=== PATIENT | female | born 1965 | race Caucasian/White ===

== ENCOUNTER 2019-07-07 04:52 | Day surgery (SDC) | payer OTHER, MEDICAID, SELFPAY ==
[2019-07-07] VITALS (8 sets, daily range): BP systolic 82–178; BP diastolic 54–98; PULSE 92–108; RESP 15–20; TEMP 36.4–37; O2SAT 94–100; BMI 36.8
[2019-07-07] MEDS: nitroglycerin 0.4 mg sublingual Tablet SUBLINGUAL (05:00)
--- NOTE | 2019-07-07 05:04 | XRR_ITS ---
PROCEDURE INFORMATION: Exam: XR Soft Tissue Neck Exam date and time: 07/07/2019 5:41 AM Age: 54 years old Clinical indication: Other: Choked on piece of meat last saige; Prior surgery; Surgery type: Carotid; Additional info: Foreign body TECHNIQUE: Imaging protocol: XR of the soft tissues of the neck. COMPARISON: CR Cervical Spine Flex/Ext [id number] 02/23/2018 9:53 AM FINDINGS: Airway: Normal. No abnormal narrowing. Soft tissues: Left neck surgical clips redemonstrated. No radiopaque or radiolucent foreign body identified. Bones/joints: Multilevel right cervical spine facet primary osteoarthritis with mild levoscoliosis. XR/XR soft tissue neck [id number] IMPRESSION: No radiopaque or radiolucent foreign body identified.
--- NOTE | 2019-07-07 05:10 | W.ED.GENADLT ---
HPI - General Adult General: Chief complaint: General Medical Stated complaint: meat lodged in throat Time Seen by Provider: 07/07/19 04:55 Source: patient Mode of arrival: ambulatory Limitations: no limitations History of Present Illness: HPI narrative: Kim is a 54-year-old female who states she was eating meat last night and felt like she got a piece of meat stuck in her throat. She states that since then she has not been able to swallow any liquids and they just come right back up. She states he also has a foreign body sensation in her esophagus. She denies any worsening improving factors. She states this is happened in the past but never had to have an EGD. She denies any vomiting. MD complaint: esophageal foreign body Onset (ago): hour(s) Severity: moderate Relieving factors: none Exacerbating factors: none Associated symptoms: Deny chest pain, dyspnea, headache(s), nausea, rash or vomiting Review of Systems Const: Denies: fever, chills, body aches or change in appetite Eyes: Denies: blurry vision or eye discomfort ENMT: Denies: throat pain or dental pain Card: Denies: chest pain Resp: Denies: shortness of breath GI: Reports: difficulty swallowing; Denies: abdominal pain, nausea, vomiting or diarrhea : Denies: painful urination Musc: Denies: neck pain or back pain Skin/Breast: Denies: rash Neuro: Denies: headache Psych: Denies: depression Dick/Lymph: Denies: easy bruising All/Imm: Denies: hives PFSH ED PFSH: Social History Smoking and tobacco status: never smoked Physical Exam Const: COMMON NORMALS: no apparent distress, oriented x3 and healthy appearing HENMT: COMMON NORMALS: normocephalic and head/scalp atraumatic HEAD & SCALP: normocephalic and atraumatic Eye: COMMON NORMALS: PERRL and EOMs intact bilaterally PUPIL: Yes PERRL Neck/C-Spine: COMMON NORMALS: full ROM and supple Chest: COMMONS NORMALS: inspection of chest normal and palpation of chest normal Resp: COMMON NORMALS: normal respiratory effort, no retractions, no use of accessory muscles and clear to auscultation bilaterally AUSCULTATION: clear to auscultation bilaterally Cardio: COMMON NORMALS: regular rate, regular rhythm and no murmurs RATE: regular rate RHYTHM: regular rhythm GI: COMMON NORMALS: normal to inspection, nondistended, normoactive bowel sounds, soft to palpation, non-tender and no masses PALPATION: Yes soft Extremity: COMMON NORMALS: normal to inspection and full ROM Neuro: COMMON NORMALS: oriented x3, moves all extremities and no focal motor deficits Psych: COMMON NORMALS: mental status grossly normal, thought process normal and cooperative THOUGHT PROCESS: normal thought process Skin: COMMON NORMALS: no rashes or lesions noted and no wounds GENERAL SKIN EXAM: no rashes or lesions noted Course Vital Signs: Vital signs: Vital Signs Temperature 98.6 F 07/07/19 05:00 Pulse Rate 107 H 07/07/19 05:00 Respiratory Rate 18 07/07/19 05:00 Blood Pressure 178/98 07/07/19 05:00 Pulse Oximetry 97 07/07/19 05:00 MDM - General Adult MDM Narrative: Medical decision making narrative: Patient presents here with an esophageal food impaction. Patient is unable to swallow any liquids here. I spoke to Dr. Fabian he is planning on taking her to the OR at 630. Patient has been stable while here. Discharge Plan Discharge Patient Disposition: Admitted As Inpatient Clinical Impression: Food impaction of esophagus Qualifiers: Encounter type: initial encounter Qualified Code(s): T18.128A - Food in esophagus causing other injury, initial encounter Condition: Stable Referrals: Alexey Bass MD [Family Provider] - Coding Level of Care Code ED Sanding Machine Tender for Chg Fwd Exam Comprehensive
--- NOTE | 2019-07-07 05:51 | XRR_ITS ---
PROCEDURE INFORMATION: Exam: XR Chest, 1 View Exam date and time: 07/07/2019 5:59 AM Age: 54 years old Clinical indication: Pre-operative exam; Respiratory screening exam; Prior surgery; Surgery type: Carotid; Patient HX: Pre-op for scope; Meat stuck in throat; Additional info: Chest pain TECHNIQUE: Imaging protocol: XR of the chest Views: Frontal portable upright view of the chest. COMPARISON: No relevant prior studies available. FINDINGS: Lungs: The lungs are clear bilaterally. The pulmonary vasculature is normal. Pleural space: No pleural effusion. No pneumothorax. Heart/Mediastinum: The heart is normal in size and contour. Mediastinum: Stable. Vasculature: Mild aortic arch atherosclerotic calcification without ectasia. Bones/joints: Stable. Other findings: No radiopaque or radiolucent foreign body identified. XR/XR chest 1V portable [id number] IMPRESSION: 1. No acute cardiopulmonary abnormality identified. 2. No radiopaque or radiolucent foreign body identified.
--- NOTE | 2019-07-07 05:53 | P.HP_ITS ---
Same Day Surgery H&P Indication for Procedure/HPI DATE OF PROCEDURE: July 07, 2019 CHIEF COMPLAINT/INDICATIONFOR SURGICAL PROCEDURE: Food impaction PREOP DIAGNOSIS: Food impaction PLANNED PROCEDRUE: Operation Date: 07/07/19 06:30 Proposed Procedures p EGD(Not Applicable) - Igor Fabian MD This is a pleasant 54 years old female patient resents to the emergency department with history of food impaction as of yesterday evening she had some steak and she started struggling with that, given to the ER for further evaluati on neck x-ray was obtained and I did request a chest x-ray both of them were insignificant. General surgery was consulted for further evaluation and potential intervention in the form of EGD and food disimpaction. Patient gives history of extensive neck surgery that she had in the past but she does not recall what kind of surgery yet she does have an neck collar incision which indicates likely thyroid surgery also she does report previous craniotomy and brain tumor excisions and history of palate surgery. She had this problem before 7 years and she does not remember if she had an endoscopy or what not No evidence of anesthesia or bleeding problems before Patient was seen and evaluated in the emergency department ROS All systems have been reviewed negative except as for the above Medications/Allergies* Allergies/Adverse Reactions Allergy/AdvReac Type Severity Reaction Status Date / Time No Known Allergies Allergy Verified 07/07/19 06:02 Pertinent History/Comorbid Conditions* Social History Smoking and tobacco status: never smoked Pertinent Exam Findings alert, oriented x 3, clear to auscultation bilaterally and regular rate & rhythm Patient is conscious alert oriented X3 BMI 37 Head and neck examination PERRLA no masses no cervical lymphadenopathy no jaundice Extensive scar tissues located at the anterior part of the neck/Collar incision Cardiac examination audible S1-S2 no murmurs no gallops no arrhythmias Chest is clear bilateral,abscence of Rhonchi or wheezes,no surgical emphysema Abdomen nontender nondistended soft no organomegaly guarding or rigidity/no signs of peritonitis Extremities no cyanosis no clubbing no edema Pertinent Data PERTINENT DATA: After thorough history physical examination and reviewing the chart and images with my personal interpretation, I counseled the patient for diagnostic EGD with possible food disimpaction in the OR with intubation to protect her airway. Patient would likely will require extensive work-up with regard to dysphagia down the road Recommendations Surgery/Procedure today (Esophagogastroduodenoscopy with possible food disimpaction) Coding Level of Care Code Acute Youth Accommodation Support Worker for Yesenia Connors
[2019-07-07 06:00] LABS: Basophils % 0.3 %; Eosinophils # 0.7 10^3/uL (0.0-0.8); Eosinophils % 6.6 %; Hematocrit 42.5 % (37.0-47.0); Hemoglobin 13.1 g/dL (11.5-15.3); Lymphocytes # 1.4 10^3/uL (0.8-4.8); Lymphocytes % 13.4 %; Mean Corpuscular HGB Conc 30.8 g/dL (30.0-36.0); Mean Corpuscular Hemoglobin 26.4 pg (28.0-34.0); Mean Corpuscular Volume 85.5 fL (81-99); Mean Platelet Volume 10.5 fL (7.4-10.4); Monocytes # 0.5 10^3/uL (0.2-0.9); Monocytes % 4.6 %; Neutrophils # 7.7 10^3/uL (1.8-7.7); Neutrophils % 74.3 %; Nucleated Red Blood Cells % 0 %; Platelet Count 298 10^3/cmm (130-400); Red Blood Count 4.97 10^6/uL (4.1-5.3); Red Cell Distribution Width 13.4 % (12.1-15.1); White Blood Count 10.3 10^3/uL (4.0-10.0)
[2019-07-07 06:12] LABS: Anion Gap 14.7 (5-19); Blood Urea Nitrogen 16 mg/dL (6-20); Calcium 10.1 mg/dL (8.5-10.5); Carbon Dioxide 26 mmol/L (22-29); Chloride 104 mmol/L (98-107); Glomerular Filtration Rate 104.6 mL/min (90-130); Glucose 210 mg/dL (65-115); Osmolality Calculated 295 mOsm/kg (285-295); Potassium 3.7 mmol/L (3.5-5.1); Sodium 141 mmol/L (136-145)
--- NOTE | 2019-07-07 06:15 | P.ANESASSM_ITS ---
Pre-Anesthetic Assessment Pre-Anesthetic Assessment: Height/Weight: Height 1.55 m Weight 88.451 kg Temp Pulse Resp BP Pulse Ox 98.6 F 108 H 18 165/97 96 07/07/19 05:00 07/07/19 05:59 07/07/19 05:59 07/07/19 05:59 07/07/19 05:59 Preop Diagnosis: Food impaction Proposed Procedure: Operation Date: 07/07/19 06:30 Proposed Procedures p EGD(Not Applicable) - Igor Fabian MD Familial anesthetic complications: NO trouble Patient unable to state what medications she takes Last intake: Intake Last Liquid Date 07/06/19 Last Liquid Time 18:00 Last Solid Date 07/06/19 Last Solid Time 18:00 Social: Social History: No alcohol and No tobacco Airway: Cervical ROM: WNL MP: 3 Dentition: Chipped Additional comments: missing Pulmonary: Pulmonary: None reported CV/HEM: Comments: Baby asprin to keep my blood thinned out for my throat : : None reported Hepatic: Hepatic: None reported GI: GI: GERD Comments: food impaction Metabolic: Metabolic: Thyroid Comments: thryoidectomy Musc/skel: Musc/skel: None reported Neuropsych: Comments: ? carotid artery stenosis (b/L) - states she had surgery on both sides of her throat Anesthetic Plan: ASA status: 2E Anesthesia: General Other: RSI Risk of > 500 ml blood loss (7ml/kg in children): No PFSH Anesthesia PFSH: Social History Smoking and tobacco status: never smoked Data Anesthesia CBC & Chem 7: 07/07/19 05:55 07/07/19 05:55 Other Labs: Laboratory Results - last 48 hr 07/07/19 07/07/19 05:55 05:55 WBC 10.3 H RBC 4.97 Hgb 13.1 Hct 42.5 MCV 85.5 MCH 26.4 L MCHC 30.8 RDW 13.4 Plt Count 298 MPV 10.5 H Neut % (Auto) 74.3 Lymph % (Auto) 13.4 [place] % (Auto) 4.6 Eos % (Auto) 6.6 Baso % (Auto) 0.3 Neut # (Auto) 7.7 Lymph # (Auto) 1.4 [place] # (Auto) 0.5 Eos # (Auto) 0.7 Baso # (Auto) 0.0 Nucleated RBC % (auto) 0 Nucleated RBCs # 0.0 Sodium 141 Potassium 3.7 Chloride 104 Carbon Dioxide 26 Anion Gap 14.7 BUN 16 Creatinine 0.6 GFR Calculation 104.6 Glucose 210 H Calculated Osmolality 295 Calcium 10.1 Cardiac Studies: No Data to Display
[2019-07-07] MEDS: sodium chloride 0.9% 1,000 ML 30 ML IV (06:30)
--- NOTE | 2019-07-07 07:30 | PM.PACU ---
PACU note Post-Anesthesia Exam: somnolent, arousable and vital signs stable Disposition: discharged
== END 2019-07-07 08:35 | disposition home or self-care (01) ==
LOC: ER 07:53 → OPS 08:10
PROVIDERS: Emergency Provider Emergency Medicine; Family Provider Family Medicine; Visit Provider Surgery
PROC: 0DJ08ZZ Inspection of Upper Intestinal Tract, Via Natural or Artificial Opening Endoscopic (ICD-10-PCS; CPT 43235; principal; 2019-07-07 06:30)
DX: T18.128A Food in esophagus causing other injury, initial encounter (principal); K29.70 Gastritis, unspecified, without bleeding; K21.9 Gastro-esophageal reflux disease without esophagitis; Z79.82 Long term (current) use of aspirin
CPT/HCPCS: 43247; 12345; 70360; 71045; 80048; 85025; 96372; 99283; J0330; J1610; J2704; J3490; J7030

== ENCOUNTER 2019-08-05 08:33 | Day surgery (SDC) | payer OTHER, MEDICAID, SELFPAY ==
[2019-08-05] VITALS (9 sets, daily range): BP systolic 102–175; BP diastolic 60–93; PULSE 88–107; RESP 16–22; TEMP 36.2–37.2; O2SAT 93–97; BMI 35.3; BMI 37.2
--- NOTE | 2019-08-05 09:02 | PC.NURSE ---
oral fluid challenge done. Pt gagged and unable to swallow water. ED physician notified.
--- NOTE | 2019-08-05 09:04 | ED_ITS ---
HPI - General Adult General: Chief complaint: Airway/Esophagus Foreign Body Stated complaint: FB IN THROAT Time Seen by Provider: 08/05/19 08:37 History of Present Illness: HPI narrative: 54-year-old female presents emergency room with complaint of difficulty swallowing. She has had this in the past she reports she has had a surgery for a blockage in her neck but cannot really tell me anything more specific than that it was done over at [facility] several years ago. This began last night has not been able to eat since he seems to be able to swallow oral secretions but we gave her a fluid challenge here in the ER and she was not able to tolerate that at all. She denies any difficulty breathing. Onset (ago): day(s) (1) Pain Consistency: intermittent Relieving factors: none Exacerbating factors: eating Associated symptoms: Reports no associated symptoms; Deny chest pain, dyspnea, malaise, nausea, rash or vomiting Treatments prior to arrival: none Review of Systems Const: Denies: fever, chills, body aches, change in appetite, fatigue or malaise ENMT: Reports: throat pain and painful swallowing; Denies: ear pain, nasal discharge or nasal congestion Card: Denies: chest pain, edema, shortness of breath on exertion or shortness of breath when lying down Resp: Denies: shortness of breath, productive cough or non-productive cough GI: Denies: abdominal pain, nausea, vomiting, vomiting blood, coffee grounds in vomit, diarrhea, constipation, bloating, blood in stool or black tarry stool : Denies: flank pain, difficulty urinating, painful urination, urinary frequency or urinary urgency Skin/Breast: Denies: rash or itching PFSH ED PFSH: Social History Smoking and tobacco status: never smoked Physical Exam Const: COMMON NORMALS: no apparent distress GENERAL APPEARANCE: cooperative and comfortable ORIENTATION/CONSCIOUSNESS: Yes awake, Yes oriented to person, Yes oriented to place and Yes oriented to time HENMT: COMMON NORMALS: normocephalic, head/scalp atraumatic, hearing grossly normal bilaterally, external ears normal, EAC's normal, TM's normal bilaterally, nasal mucous membranes and turbinates normal, moist oral mucous membranes and oropharynx normal HEAD & SCALP: normocephalic and atraumatic NOSE: nasal mucous membranes and turbinates normal EXTERNAL EAR: Yes external ears normal EXTERNAL AUDITORY CANAL: EAC's normal TYMPANIC MEMBRANE: TM's normal bilaterally Eye: COMMON NORMALS: PERRL, EOMs intact bilaterally, conjunctivae normal and no scleral icterus CONJUNCTIVA: Yes conjunctivae normal PUPIL: Yes PERRL Neck/C-Spine: COMMON NORMALS: full ROM, no lymphadenopathy, supple and no JVD Lymph: LYMPHATIC: no lymphadenopathy noted and no lymphedema noted Resp: COMMON NORMALS: normal respiratory effort, no retractions, no use of accessory muscles and clear to auscultation bilaterally AUSCULTATION: clear to auscultation bilaterally Cardio: COMMON NORMALS: no JVD, regular rate, regular rhythm and no murmurs RATE: regular rate RHYTHM: regular rhythm GI: COMMON NORMALS: soft to palpation and no hepatosplenomegaly AUSCULTATION: Yes normoactive bowel sounds PALPATION: Yes soft, No tender, No guarding and Yes no hepatosplenomegaly Extremity: COMMON NORMALS: normal to inspection, normal capillary refill, no clubbing, cyanosis or edema, no calf tenderness and no pedal edema Neuro: SENSORIUM/ORIENTATION: Yes oriented to person, Yes oriented to place and Yes oriented to time Skin: COMMON NORMALS: no rashes or lesions noted GENERAL SKIN EXAM: no rashes or lesions noted Course Vital Signs: Vital signs: Vital Signs Temperature 99.0 F 08/05/19 10:18 Pulse Rate 102 H 08/05/19 10:18 Respiratory Rate 20 H 08/05/19 10:18 Blood Pressure 168/72 08/05/19 10:18 Pulse Oximetry 96 08/05/19 10:18 MDM - General Adult MDM Narrative: Medical decision making narrative: P.o. fluid challenge failed patient was unable to swallow any fluids. Discussed Dr. Fabian she will has previously seen this patient and on EGD for esophageal impaction he plans to take her to outpatient surgery and repeat. Reviewed with the patient she is in agreement. Lab Data: Labs: Lab Results 08/05/19 08/05/19 Range/Units 09:08 09:08 WBC 8.8 (4.0-10.0) 10^3/ uL RBC 5.24 (4.1-5.3) 10^6/u L Hgb 14.1 (11.5-15.3) g/dL Hct 46.1 (37.0-47.0) % MCV 88.0 (81-99) fL MCH 26.9 L (28.0-34.0) pg MCHC 30.6 (30.0-36.0) g/dL RDW 13.2 (12.1-15.1) % Plt Count 270 (130-400) 10^3/c mm MPV 10.4 (7.4-10.4) fL Neut % (Auto) 74.7 % Lymph % (Auto) 14.5 % [place] % (Auto) 4.8 % Eos % (Auto) 5.2 % Baso % (Auto) 0.3 % Neut # (Auto) 6.6 (1.8-7.7) 10^3/u L Lymph # (Auto) 1.3 (0.8-4.8) 10^3/u L [place] # (Auto) 0.4 (0.2-0.9) 10^3/u L Eos # (Auto) 0.5 (0.0-0.8) 10^3/u L Baso # (Auto) 0.0 (0.0-0.1) 10^3/u L Nucleated RBC % (a uto) 0 % Nucleated RBCs # 0.0 /100WBC Sodium 143 (136-145) mmol/L Potassium 4.0 (3.5-5.1) mmol/L Chloride 103 (98-107) mmol/L Carbon Dioxide 29 (22-29) mmol/L Anion Gap 15.0 (5-19) BUN 13 (6-20) mg/dL Creatinine 0.7 (0.5-0.9) mg/dL GFR Calculation 87.5 L (90-130) mL/min Glucose 113 (65-115) mg/dL Calculated Osmolal ity 293 (285-295) mOsm/k g Calcium 10.6 H (8.5-10.5) mg/dL Discharge Plan Discharge Patient Disposition: Admitted As Inpatient Clinical Impression: Esophageal obstruction due to food impaction Condition: Stable Interventions: ED Discharge Assessment Last Done: 08/05/19 10:08 Discharge Date/Time: 08/05/19 10:10 Coding Level of Care Code ED Industrial Roofer Helper for Chg Fwd Exam Comprehensive
[2019-08-05 09:14] LABS: Basophils % 0.3 %; Eosinophils # 0.5 10^3/uL (0.0-0.8); Eosinophils % 5.2 %; Hematocrit 46.1 % (37.0-47.0); Hemoglobin 14.1 g/dL (11.5-15.3); Lymphocytes # 1.3 10^3/uL (0.8-4.8); Lymphocytes % 14.5 %; Mean Corpuscular HGB Conc 30.6 g/dL (30.0-36.0); Mean Corpuscular Hemoglobin 26.9 pg (28.0-34.0); Mean Platelet Volume 10.4 fL (7.4-10.4); Monocytes # 0.4 10^3/uL (0.2-0.9); Monocytes % 4.8 %; Neutrophils # 6.6 10^3/uL (1.8-7.7); Neutrophils % 74.7 %; Nucleated Red Blood Cells % 0 %; Platelet Count 270 10^3/cmm (130-400); Red Blood Count 5.24 10^6/uL (4.1-5.3); Red Cell Distribution Width 13.2 % (12.1-15.1); White Blood Count 8.8 10^3/uL (4.0-10.0)
--- NOTE | 2019-08-05 09:16 | XR_ITS ---
WS: [id number] NECK SOFT TISSUE TECHNIQUE: 2 views of the soft tissue neck CLINICAL INFORMATION: food bolus COMPARISON: July 07, 2019 FINDINGS: Surgical clips in the neck. Prior parietal craniotomy. Moderate spondylitic changes cervical spine. N ormal prevertebral soft tissues. Pharynx and hypopharynx appear patent. No radiopaque foreign bodies. XR/XR soft tissue neck [id number] IMPRESSION: No acute soft tissue neck findings. No radiopaque foreign bodies.
--- NOTE | 2019-08-05 09:16 | XR_ITS ---
WS: [id number] CHEST XRAY TECHNIQUE: Portable chest. CLINICAL INFORMATION: food bouls impaction COMPARISON: July 07, 2019 FINDINGS: Heart: Normal cardiac silhouette. Lungs: Lungs are clear. No consolidation or pleural effusion. Bones: Normal visualized bony structures. XR/XR chest 1V portable [id number] IMPRESSION: Normal chest
--- NOTE | 2019-08-05 09:25 | PC.NURSE ---
pt transported to radiology by wheelchair with tech
[2019-08-05 09:32] LABS: Blood Urea Nitrogen 13 mg/dL (6-20); Calcium 10.6 mg/dL (8.5-10.5); Carbon Dioxide 29 mmol/L (22-29); Chloride 103 mmol/L (98-107); Glomerular Filtration Rate 87.5 mL/min (90-130); Glucose 113 mg/dL (65-115); Osmolality Calculated 293 mOsm/kg (285-295); Sodium 143 mmol/L (136-145)
--- NOTE | 2019-08-05 10:06 | PC.NURSE ---
pt placed in gown, all belongings in belongings bag, pt leaving with patent IV
--- NOTE | 2019-08-05 10:30 | ANES.PREANE2 ---
Pre-Anesthetic Assessment Pre-Anesthetic Assessment: Height/Weight: Height 1.55 m Weight 89.358 kg Temp Pulse Resp BP Pulse Ox 99.0 F 102 H 20 H 168/72 96 08/05/19 10:18 08/05/19 10:18 08/05/19 10:18 08/05/19 10:18 08/05/19 10:18 Preop Diagnosis: Food impaction Proposed Procedure: Operation Date: 08/05/19 11:00 Proposed Procedures p EGD(Not Applicable) - Igor Fabian MD Familial anesthetic complications: None Was Beta Verenice taken within 24 hours: N/A Last intake: Intake Last Liquid Date 08/04/19 Last Liquid Time 18:30 Last Solid Date 08/04/19 Last Solid Time 18:30 Social: Social History: No alcohol and No tobacco Exam: Pre-Anes Outpt Exam: alert, oriented x 3, clear to auscultation bilaterally and regular rate & rhythm Airway: Cervical ROM: WNL MP: 4 Additional comments: missing teeth Pulmonary: Pulmonary: None reported CV/HEM: CV/HEM: None reported : : None reported Hepatic: Hepatic: None reported GI: GI: None reported Metabolic: Metabolic: Morbid obesity and Thyroid Comments: thyroidectomy B/L carotid stenosis ( Musc/skel: Musc/skel: None reported Neuropsych: Neuropsych: None reported Anesthetic Plan: ASA status: 3E Anesthesia: General Risk of > 500 ml blood loss (7ml/kg in children): No PFSH Anesthesia PFSH: Social History Smoking and tobacco status: never smoked Data Anesthesia CBC & Chem 7: 08/05/19 09:08 08/05/19 09:08 Other Labs: Laboratory Results - last 48 hr 08/05/19 08/05/19 09:08 09:08 WBC 8.8 RBC 5.24 Hgb 14.1 Hct 46.1 MCV 88.0 MCH 26.9 L MCHC 30.6 RDW 13.2 Plt Count 270 MPV 10.4 Neut % (Auto) 74.7 Lymph % (Auto) 14.5 [place] % (Auto) 4.8 Eos % (Auto) 5.2 Baso % (Auto) 0.3 Neut # (Auto) 6.6 Lymph # (Auto) 1.3 [place] # (Auto) 0.4 Eos # (Auto) 0.5 Baso # (Auto) 0.0 Nucleated RBC % (auto) 0 Nucleated RBCs # 0.0 Sodium 143 Potassium 4.0 Chloride 103 Carbon Dioxide 29 Anion Gap 15.0 BUN 13 Creatinine 0.7 GFR Calculation 87.5 L Glucose 113 Calculated Osmolality 293 Calcium 10.6 H Cardiac Studies: No Data to Display
[2019-08-05] MEDS: sodium chloride 0.9% 1,000 ML 30 ML IV (10:44)
--- NOTE | 2019-08-05 11:10 | W.PM.OPSFHP ---
Same Day Surgery H&P Indication for Procedure/HPI DATE OF PROCEDURE: August 05, 2019 CHIEF COMPLAINT/INDICATIONFOR SURGICAL PROCEDURE: Difficulty in swallowing PREOP DIAGNOSIS: Food impaction PLANNED PROCEDRUE: Operation Date: 08/05/19 11:00 Proposed Procedures p EGD(Not Applicable) - Igor Fabian MD Chief Complaint: History of present illness: This is a pleasant 54 years old female patient presents to the emergency department with history of food impaction, patient was eating ribs around 4:30 PM yesterday and felt the sensation of food impaction she was able to have 2 pieces and she started feeling that she is not able to swallow good, she denies hematemesis or any neck or chest pain and for unclear reason she did not come to the ER except today morning and she was worked up in general surgery was consulted for further evaluation and potential. Patient did have the same episode back in July 06 and I went back with an EGD for food disimpaction,Patient gives history of extensive neck surgery that she had in the past but she does not recall what kind of surgery yet she does have an neck collar incision which indicates likely thyroid surgery also she does report previous craniotomy and brain tumor excisions and history of palate surgery. She had this problem before 7 years and she does not remember if she had an endoscopy or what not No evidence of anesthesia or bleeding problems before Neck and chest x-ray were ordered by me showed normal findings and no evidence of pneumomediastinum ROS All systems have been reviewed negative except as for the above and per problem list Medications/Allergies* Home Medications Medication Instructions Recorded Confirmed Type aspirin [Aspir-81] 81 mg PO DAILY 08/05/19 08/05/19 History celecoxib 100 mg PO DAILY 08/05/19 08/05/19 History docusate sodium [DOK] 100 mg PO BID 08/05/19 08/05/19 History levetiracetam 500 mg PO BID 08/05/19 08/05/19 History levothyroxine 150 mcg PO DAILY 08/05/19 08/05/19 History simvastatin 20 mg PO DAILY 08/05/19 08/05/19 History Allergies/Adverse Reactions Allergy/AdvReac Type Severity Reaction Status Date / Time No Known Allergies Allergy Verified 08/05/19 11:13 Current Medications: Generic Name Dose Route Start Last Admin Trade Name Freq PRN Reason Stop Dose Admin Sodium Chloride 1,000 mls @ 30 mls/hr 08/05/19 10:45 08/05/19 10:44 Sodium Chloride 0.9% IV 08/06/19 10:44 30 mls/hr .Q24H ELIZA Administration Pertinent History/Comorbid Conditions* Social History Smoking and tobacco status: never smoked Pertinent Exam Findings alert, oriented x 3, clear to auscultation bilaterally, regular rate & rhythm and procedure specific exam findings (Neck examination shows no tenderness but evidence of extensive scarring and abdominal examination nontender nondistended soft no peritonitis) Recommendations Surgery/Procedure today (After thorough history physical examination and reviewing the chart and images with my personal interpretation, I did counseling department chair the patient for EGD with possible biopsy and removal of foreign body, patient agreed to proceed and informed consent per chart) Coding Level of Care Code Acute Line Therapist for Yesenia Connors
--- NOTE | 2019-08-05 11:46 | SUR.PHASEI ---
1144 PATIENT TO PACU AT THIS TIME FROM OR. PATIENT AROUSES TO VERBAL STIMULI. DENIES PAIN. RR EVEN AND UNLABORED. SPO2 96% ON RA.
--- NOTE | 2019-08-05 12:06 | SUR.PHASEI ---
1202 PATIENT TO OPS AT THIS TIME. DENIES PAIN, TOLERATING ICE CHIPS. A/OX3. RR EVEN AND UNLABORED.
== END 2019-08-05 12:20 | disposition home or self-care (01) ==
LOC: ER 08:52 → OPS 09:16
PROVIDERS: Emergency Provider Family Medicine; Visit Provider Surgery
PROC: 0DJ08ZZ Inspection of Upper Intestinal Tract, Via Natural or Artificial Opening Endoscopic (ICD-10-PCS; CPT 43235; principal; 2019-08-05 11:00)
DX: T18.128A Food in esophagus causing other injury, initial encounter (principal); K21.9 Gastro-esophageal reflux disease without esophagitis; Z79.82 Long term (current) use of aspirin; E66.01 Morbid (severe) obesity due to excess calories; Z68.37 Body mass index [BMI] 37.0-37.9, adult
CPT/HCPCS: 43247; 12345; 70360; 71045; 80048; 85025; 99282; J0330; J2704; J3490; J7030

== ENCOUNTER 2019-09-13 08:52 | Outpatient (CLI) | payer OTHER, MEDICAID, SELFPAY ==
--- NOTE | 2019-09-13 09:01 | FL_ITS ---
WS: [id number] MODIFIED BARIUM SWALLOW TECHNIQUE: Modified barium swallow with speech therapy using multiple consistencies. FLUOROSCOPY TIME: 2.8 minutes. CLINICAL INFORMATION: Oral dysphagia COMPARISON: None. FINDINGS: Multiple consistencies utilized. Penetration with thin liquid. No evidence of aleksandr aspiration. Bariu m tablet briefly delayed at the GE junction with which cleared with additional pudding. Moderate esop hageal dysmotility partially visualized. FL/FL barium swallow modifd [id number] IMPRESSION: 1. Penetration with thin liquid. No aleksandr aspiration. 2. Moderate esophageal dysmotility partially visualized with delayed barium ta blet transit at the GE junction.
== END 2019-09-13 08:53 | disposition home or self-care (01) ==
LOC: RAD 08:55
PROVIDERS: Visit Provider Surgery
DX: R13.11 Dysphagia, oral phase (principal)
CPT/HCPCS: 74230; 92611

== ENCOUNTER → 2020-01-21 10:40 | Outpatient (BNVA) | payer OTHER, MEDICAID, SELFPAY | PROVIDERS: Visit Provider Emergency Medicine | DX: R10.9 Unspecified abdominal pain (principal) | CPT/HCPCS: 80053; 81000; 83690; 85025 ==

== ENCOUNTER → 2020-10-24 18:00 | Outpatient (BNVA) | payer OTHER, MEDICAID, SELFPAY | PROVIDERS: Visit Provider Family Medicine | DX: M19.012 Primary osteoarthritis, left shoulder (principal); I10 Essential (primary) hypertension; K59.00 Constipation, unspecified; E03.9 Hypothyroidism, unspecified; K21.9 Gastro-esophageal reflux disease without esophagitis; M19.90 Unspecified osteoarthritis, unspecified site; K59.04 Chronic idiopathic constipation; Z13.220 Encounter for screening for lipoid disorders; Z13.6 Encounter for screening for cardiovascular disorders; Z87.898 Personal history of other specified conditions; Z76.89 Persons encountering health services in other specified circumstances | CPT/HCPCS: 80053; 80061; 80177; 84443 ==

== ENCOUNTER → 2021-01-04 14:35 | Outpatient (BNVA) | payer OTHER, MEDICAID, SELFPAY | PROVIDERS: Visit Provider Family Medicine | DX: I10 Essential (primary) hypertension (principal); K21.9 Gastro-esophageal reflux disease without esophagitis; R07.81 Pleurodynia; E03.9 Hypothyroidism, unspecified; Z87.898 Personal history of other specified conditions; K59.00 Constipation, unspecified; M19.90 Unspecified osteoarthritis, unspecified site; R10.9 Unspecified abdominal pain | CPT/HCPCS: 80053; 83690; 84439; 84443; 84481; 85025 ==

== ENCOUNTER 2021-02-20 07:55 | Outpatient (CLI) | payer OTHER, MEDICAID, SELFPAY ==
[2021-02-20] MEDS: iohexol 300 mg/mL 100 mL Btl IV (09:08)
--- NOTE | 2021-02-20 10:00 | CT_ITS ---
WS: [id number] CT ABDOMEN PELVIS TECHNIQUE: Contrast-enhanced CT of the abdomen and pelvis with coronal and sagittal reformatted image s. CLINICAL INFORMATION: K86.89 - Other specified diseases of pancreas COMPARISON: 6 01/22/2020 and 04/30/2019 and MRI DLP: 1119.[address] scans at [facility] use at least one of these dose optimization techniques: automated e xposure control; mA and/or kV adjustment per patient size (includes targeted exams where dose is matc hed to clinical indication); or iterative reconstruction. FINDINGS: Again seen is the enhancing neoplasm involving the body of the pancreas measuring 2.5 x 2.8 cm unchan ged since the MRI suspicious for mucinous cystic neoplasm. Enhancing internal septations. N o significant progression. No pancreatic ductal dilatation. Lung bases are well aerated. Mild diffuse fatty infiltration the liver. Normal portal vein and spleni c vein. Normal GE junction. Normal spleen. Normal gallbladder. Adrenal glands are normal. Normal marquise l parenchymal enhancement. No hydronephrosis. Right renal cortical scarring. Bilateral renal cysts. L argest in the right measuring 3.4 x 3.9 CM. Moderate aortic calcification. Normal sigmoid colon. No evidence of high-grade small or large bowel obstruction. No abdominal or pel domonique lymphadenopathy. No inguinal lymphadenopathy. CT/CT abdomen pelvis w con* [id number] IMPRESSION: 1. 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 This is unchanged since the prior MRI in 2019. 2. Parenchymal scarring right kidney with bilateral renal cysts. Largest renal cyst right kidney measuring 3.4 x 3.9 CM. 3. Mild diffuse fatty infiltration liver. 4. No other significant changes from previous.
== END 2021-02-20 07:56 | disposition home or self-care (01) ==
PROVIDERS: PCP Family Medicine; Visit Provider Family Medicine
DX: K86.89 Other specified diseases of pancreas (principal); K76.0 Fatty (change of) liver, not elsewhere classified; Q61.02 Congenital multiple renal cysts
CPT/HCPCS: 74177; Q9967

== ENCOUNTER → 2021-03-15 09:04 | Outpatient (BNVA) | payer MEDICAID, SELFPAY | PROVIDERS: PCP Family Medicine; Visit Provider Family Medicine | DX: E03.9 Hypothyroidism, unspecified (principal) | CPT/HCPCS: 84439; 84443; 84481 ==

== ENCOUNTER → 2021-05-23 10:14 | Outpatient (BNVA) | payer MEDICAID, SELFPAY | PROVIDERS: PCP Family Medicine; Visit Provider Family Medicine | DX: K58.9 Irritable bowel syndrome, unspecified (principal); M25.512 Pain in left shoulder; Z23 Encounter for immunization | CPT/HCPCS: 73030 ==

== ENCOUNTER 2021-06-14 08:19 | Outpatient (CLI) | payer MEDICAID, SELFPAY ==
--- NOTE | 2021-06-14 08:30 | MM_ITS ---
WS: [id number] Bilateral screening digital mammogram, 06/14/2021 Clinical Data: Z12.39 - Encounter for other screening for malignant neop... Comparison: 02/17/2017. Findings: The breast parenchymal pattern shows fibroglandular tissue No spiculated masses or clustered calcific ations are seen. There are no secondary signs of carcinoma. There is an intramammary lymph node in th e upper outer quadrant of the left breast unchanged. MM/[place] [id number] Impression: 1. Negative bilateral mammogram unchanged. 2. Recommend annual screening mammograms. BIRADS: 1-Negative FOLLOW UP: 1 Year Follow-up The CAD fact checker was used.
== END 2021-06-14 08:20 | disposition home or self-care (01) ==
LOC: RADSHAW 08:25
PROVIDERS: PCP Family Medicine; Visit Provider Family Medicine
DX: Z12.31 Encounter for screening mammogram for malignant neoplasm of breast (principal)
CPT/HCPCS: 77067

== ENCOUNTER → 2021-07-17 09:00 | Outpatient (BNVA) | payer MEDICAID, SELFPAY | PROVIDERS: PCP Family Medicine; Visit Provider Surgery | DX: Z20.822 Contact with and (suspected) exposure to COVID-19 (principal) | CPT/HCPCS: 87635 ==

== ENCOUNTER 2021-07-23 06:20 | Day surgery (SDC) | payer MEDICAID, SELFPAY ==
[2021-07-19 13:20] VITALS: BMI 41.5
[2021-07-23 06:37] VITALS: BP 157/124; PULSE 131; RESP 18; TEMP 36.1; O2SAT 93
[2021-07-23 06:48] VITALS: BP 138/82; PULSE 112
[2021-07-23] MEDS: sodium chloride 0.9% 1,000 ML 30 ML IV (06:48)
--- NOTE | 2021-07-23 06:59 | P.ANESASSM_ITS ---
Documented by User: Christian Rollins Jr, CLIENT CARE SPECIALIST 07/23/21 07:01 Pre-Anesthetic Assessment Height/Weight: Height 1.55 m Weight 99.79 kg Temp Pulse Resp BP Pulse Ox 97 F L 112 H 18 138/82 93 07/23/21 06:37 07/23/21 06:48 07/23/21 06:37 07/23/21 06:48 07/23/21 06:37 Preop Diagnosis: Hematochezia Operation Date: 07/23/21 07:30 Proposed Procedures p Colonoscopy 96650/k62.6(Not Applicable) - Luis Gay MD Was Clonidine taken within 24 hours: N/A Last intake: Intake Last Liquid Date 07/23/21 Last Solid Date 07/21/21 Last Solid Time 00:00 Social No alcohol and No tobacco Exam alert, oriented x 3, clear to auscultation bilaterally and regular rate & rhythm Airway Submandibular: within normal limits Cervical ROM: within normal limits Mallampati: Class II Dentition: full History/ROS No significant history except as noted and No significant complaints Pulmonary None reported CV/HEM Hypertension None reported Hepatic None reported GI Gastroesophageal Reflux Disease Metabolic Thyroid Disease [facility] [place] Lower Back Pain and Osteoarthritis/DJD Neuropsych Seizure Brain surgery X 3. Slow to respond to questions Anesthetic Plan ASA status: 3 Anesthesia: Anesthesia Evaluation and MAC Risk of > 500 ml blood loss (7ml/kg in children): No Medications/Allergies Home Medications Medication Instructions Recorded Confirmed Last Taken Type aspirin 81 mg tablet,delayed 81 mg PO DAILY 90 Days #90 tab 10/24/20 07/23/21 07/22/21 Rx release simvastatin 20 mg tablet 20 mg PO .at bedtime 90 Days #90 10/24/20 07/23/21 07/22/21 Rx tab celecoxib 100 mg capsule 100 mg PO DAILY 30 Days #30 cap 01/04/21 07/23/21 07/22/21 Rx pantoprazole 40 mg tablet,delayed 40 mg PO DAILY 90 Days #90 tab 01/04/21 07/23/21 07/22/21 Rx release (Protonix) metoprolol succinate 50 mg 50 mg PO DAILY 30 Days #30 tab 03/15/21 07/23/21 07/22/21 Rx tablet,extended release 24 hr levothyroxine 137 mcg tablet 137 mcg PO DAILY 90 Days #90 tab 1107/23/21 07/22/21 Rx linaclotide 72 mcg capsule 72 mcg PO QAM 30 Days #30 cap 05/23/21 07/23/21 07/22/21 Rx (Linzess) cyclobenzaprine 5 mg tablet 10 mg PO TID PRN #60 tab MDD 6 tabs 05/25/21 07/23/21 07/22/21 Rx levetiracetam 500 mg tablet 500 mg PO BID 30 Days #60 tab 05/25/21 07/23/21 07/22/21 Rx Allergies Allergy/AdvReac Type Severity Reaction Status Date / Time No Known Allergies Allergy Verified 07/19/21 13:17 Current Medications Generic Name Dose Route Start Last Admin Trade Name Freq PRN Reason Stop Dose Admin Sodium Chloride 1,000 mls @ 30 mls/hr 07/23/21 06:30 07/23/21 06:48 Sodium Chloride 0.9% IV 07/24/21 06:29 30 mls/hr .Q24H ELIZA Administration PFSH Anesthesia Medical History Chronic arthritis Constipation GERD (gastroesophageal reflux disease) History of brain tumor History of seizures Hypertension Hypothyroidism Social History Smoking and tobacco status: never smoked Female Reproductive History Spontaneous abortions: No Data Anesthesia Cardiac Studies: No Data to Display
--- NOTE | 2021-07-23 07:10 | W.PM.OPSFHP ---
Same Day Surgery H&P Indication for Procedure/HPI DATE OF PROCEDURE: July 23, 2021 CHIEF COMPLAINT/INDICATIONFOR SURGICAL PROCEDURE: Hematochezia PREOP DIAGNOSIS: Hematochezia PLANNED PROCEDURE: Operation Date: 07/23/21 07:30 Proposed Procedures p Colonoscopy 87143/k62.6(Not Applicable) - Luis Gay MD Medications/Allergies* Allergies/Adverse Reactions Allergy/AdvReac Type Severity Reaction Status Date / Time No Known Allergies Allergy Verified 07/19/21 13:17 Current Medications: Generic Name Dose Route Start Last Admin Trade Name Freq PRN Reason Stop Dose Admin Sodium Chloride 1,000 mls @ 30 mls/hr 07/23/21 06:30 07/23/21 06:48 Sodium Chloride 0.9% IV 07/24/21 06:29 30 mls/hr .Q24H ELIZA Administration Pertinent History/Comorbid Conditions* Medical History (Updated 06/26/21 @ 13:53 by Luis Gay MD) Chronic arthritis Constipation GERD (gastroesophageal reflux disease) History of brain tumor History of seizures Hypertension Hypothyroidism Social History Smoking and tobacco status: never smoked Pertinent Exam Findings alert, oriented x 3, clear to auscultation bilaterally, regular rate & rhythm, operative site marked and procedure specific exam findings Recommendations Surgery/Procedure today Coding Level of Care Code 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
[2021-07-23 07:50] VITALS: BP 143/98; PULSE 105; RESP 16; TEMP 36.1; O2SAT 95
--- NOTE | 2021-07-23 13:48 | ANE.PACU2 ---
Inpatient post-anesthesia follow up: Airway intact: Yes Vital signs: Temperature 97 F Pulse Rate 105 Respiratory Rate 16 Blood Pressure 143/98 Pulse Oximetry 95 Oxygen Delivery Me thod Nasal Cannula Oxygen Flow Rate 4 Fraction of Inspir ed Oxygen Hydration adequate: Yes Nausea and vomiting: No Pain level: 1 Mental status: Baseline
== END 2021-07-23 08:27 | disposition home or self-care (01) ==
PROVIDERS: PCP Family Medicine; Visit Provider Internal Medicine
PROC: 0DJD8ZZ Inspection of Lower Intestinal Tract, Via Natural or Artificial Opening Endoscopic (ICD-10-PCS; CPT 45378; principal; 2021-07-23 07:30)
DX: K92.1 Melena (principal); K57.30 Diverticulosis of large intestine without perforation or abscess without bleeding; I10 Essential (primary) hypertension; E03.9 Hypothyroidism, unspecified; K21.9 Gastro-esophageal reflux disease without esophagitis; Z79.82 Long term (current) use of aspirin
CPT/HCPCS: 45378; J2704; J7030

== ENCOUNTER → 2021-09-05 13:33 | Outpatient (BNVA) | payer MEDICAID, SELFPAY | PROVIDERS: PCP Family Medicine; Visit Provider Family Medicine | DX: I10 Essential (primary) hypertension (principal); K21.9 Gastro-esophageal reflux disease without esophagitis; K58.9 Irritable bowel syndrome, unspecified; E03.9 Hypothyroidism, unspecified; Z87.898 Personal history of other specified conditions; R07.81 Pleurodynia; M19.90 Unspecified osteoarthritis, unspecified site; Z51.81 Encounter for therapeutic drug level monitoring; K86.89 Other specified diseases of pancreas; K58.2 Mixed irritable bowel syndrome | CPT/HCPCS: 80053; 84439; 84443; 84481; 85025 ==

== ENCOUNTER 2021-10-12 09:08 | Day surgery (SDC) | payer MEDICAID, SELFPAY ==
[2021-10-12] VITALS (9 sets, daily range): BP systolic 90–141; BP diastolic 60–89; PULSE 98–117; RESP 14–18; TEMP 36.3–36.9; O2SAT 94–100; BMI 41.3
--- NOTE | 2021-10-12 09:57 | XR_ITS ---
WS: [id number] Portable AP upright chest, 10/12/2021 Clinical Data: esophageal impaction? Comparison: Portable chest, 08/05/2019. Findings: No nodules, masses or effusions are seen. The heart is normal. The pulmonary vascularity is not increased. No pneumonia or pneumothorax is seen. There is minimal calcification of the aortic ar ch. XR/XR chest 1V portable [id number] Impression: Atherosclerosis.
--- NOTE | 2021-10-12 11:12 | W.ED.GENADLT ---
HPI - General Adult General: Chief complaint: General Medical Stated complaint: food stuck in throat Time Seen by Provider: 10/12/21 10:46 History of Present Illness: Patient is a 56-year-old female with a history of multiple esophageal impaction presenting to the emergency room after patient began developing a foreign object sensation in her chest after eating steak yesterday night. Since then, patient has not been able to swallow steak. Patient denies any drooling, stridor, hoarseness of voice or shortness of breath. Denies nauesea/vomiting, fever/chill, chest pain, shortness of breath, abdominal pain, dysuria/hematuria/polyuria, diarrhea/melena/hematochezia. Onset:16 hrs ago Duration:16 hrs Location:home Severity:moderate Associated symptoms: Deny chest pain, dyspnea, nausea, rash, palpitations or vomiting Review of Systems Const: Denies: fever(s) or chills Eyes: Denies: change in vision ENMT: Denies: mouth pain Card: Denies: chest pain or palpitations Resp: Denies: dyspnea or non-productive cough GI: Reports: other (+foreign object sensation in chest); Denies: abdominal pain, nausea, vomiting or diarrhea : Denies: dysuria Musc: Denies: extremity pain Skin/Breast: Denies: rash or new lesions Neuro: Denies: weakness in extremities Psych: Reports: other (Normal mood) Dick/Lymph: Denies: easy bruising PFS ED PFSH: Medical History Chronic arthritis Constipation GERD (gastroesophageal reflux disease) History of brain tumor History of seizures Hypertension Hypothyroidism Social History Smoking and tobacco status: never smoked Physical Exam Const: COMMON NORMALS: alert HENMT: COMMON NORMALS: atraumatic HEAD & SCALP: atraumatic MOUTH: moist mucous membranes not abnormal Eye: COMMON NORMALS: EOMs intact bilaterally and conjunctivae normal CONJUNCTIVA: Yes conjunctivae normal Neck/C-Spine: COMMON NORMALS: full ROM and supple Resp: COMMON NORMALS: normal respiratory effort and clear to auscultation bilaterally AUSCULTATION: clear to auscultation bilaterally Cardio: COMMON NORMALS: regular rate RATE: regular rate GI: COMMON NORMALS: Soft to palpation and non-tender PALPATION: Yes Soft to palpation Extremity: COMMON NORMALS: full ROM Neuro: SENSORIUM/ORIENTATION: Yes alert MOTOR EXAM: No Abnormal motor strength present and Other motor observations present (no focal motor deficits) Psych: COMMON NORMALS: speech normal SPEECH: Yes normal speech MOOD & AFFECT: Yes euthymic mood Course Vital Signs: Vital signs: Vital Signs Temperature 98.5 F 10/12/21 09:38 Pulse Rate 113 H 10/12/21 09:38 Respiratory Rate 18 10/12/21 09:38 Blood Pressure 128/89 10/12/21 09:38 Pulse Oximetry 96 10/12/21 09:38 MDM - General Adult Medical Decision Making 56-year-old female with history of prior esophageal impaction presenting to emergency room with concerns for esophageal impaction. Patient has no signs of oral airway compromise. Hemodynamically stable. Lung appears to be clear bilaterally. XR chest not show any focal findings. We attempted carbonated beverages however was unsuccessful. Case was discussed with Dr. Cruz who agrees with EGD. Disposition: admission Lab Data Radiology Impressions Chest X-Ray 10/12/21 09:57 Impression: Atherosclerosis. Imaging Data Other Imaging: Radiologist's impression: [address] [address] XRay Report Signed Patient: Kim Wilks Unit #: [id number] : [id number] Age/Sex: 56 / F ADM Date: 10/12/21 Loc: ER Room/Bed: Attending Dr: Ordering Provider/Ordering MD: Marce Pinzon MD Date of Service: 10/12/21 Procedure(s): XR chest 1V portable [id number] Accession Number(s): [id number] Report Number: [id number] WS: [id number] Portable AP upright chest, 10/12/2021 Clinical Data: esophageal impaction? Comparison: Portable chest, 08/05/2019. Findings: No nodules, masses or effusions are seen. The heart is normal. The pulmonary vascularity is not increased. No pneumonia or pneumothorax is seen. There is minimal calcification of the aortic arch. XR/XR chest 1V portable [id number] Impression: Atherosclerosis. ? 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
--- NOTE | 2021-10-12 12:47 | PM.HP ---
Providers/Chief Complaint Primary Care Provider: Maliha Stein MD Chief Complaint: food stuck in throat History of Present Illness Kim Wilks is a 56 year old female who has been having an inability to swallow food or liquid since dinner last night. She has had 2 esophageal food impactions that required removal in the past. She has never had a follow-up EGD. She was eating steak last night. She is able to keep down her saliva, but nothing else. She denies any abdominal or chest pain. Denies any fever or chills. Review of Systems General: Reports: 10 or more systems reviewed and unremarkable except in HPI and below Medications/Allergies Home Medications Medication Instructions Recorded Confirmed Last Taken Type aspirin 81 mg tablet,delayed 81 mg PO DAILY 90 Days #90 tab 09/05/21 09/05/21 Unknown Rx release celecoxib 100 mg capsule 100 mg PO DAILY 90 Days #90 cap 09/05/21 09/05/21 Unknown Rx cyclobenzaprine 5 mg tablet 10 mg PO TID PRN #60 tab MDD 6 tabs 09/05/21 09/05/21 Unknown Rx levetiracetam 500 mg tablet 500 mg PO BID 90 Days #180 tab 09/05/21 09/05/21 Unknown Rx levothyroxine 137 mcg tablet 137 mcg PO DAILY 90 Days #90 tab 09/05/21 09/05/21 Unknown Rx linaclotide 72 mcg capsule 72 mcg PO QAM 30 Days #30 cap 09/05/21 09/05/21 Unknown Rx (Linzess) metoprolol succinate 50 mg 50 mg PO DAILY 90 Days #90 tab 09/05/21 09/05/21 Unknown Rx tablet,extended release 24 hr pantoprazole 40 mg tablet,delayed 40 mg PO DAILY 90 Days #90 tab 09/05/21 09/05/21 Unknown Rx release (Protonix) simvastatin 20 mg tablet 20 mg PO .at bedtime 90 Days #90 09/05/21 09/05/21 Unknown Rx tab Allergies Allergy/AdvReac Type Severity Reaction Status Date / Time No Known Allergies Allergy Verified 09/05/21 07:17 PFSH Acute PFSH: Medical History (Updated 10/12/21 @ 12:51 by Reji Cruz DO) Chronic arthritis Cleft palate Constipation GERD (gastroesophageal reflux disease) History of brain tumor History of seizures Hypertension Hypothyroidism Social History Smoking and tobacco status: never smoked Vitals/I&O/Wt Last Vital Signs Temp 97.9 F 10/12/21 12:33 Pulse 117 H 10/12/21 12:33 Resp 18 10/12/21 12:33 BP 119/78 10/12/21 12:33 Pulse Ox 95 10/12/21 12:33 Weight last 48 hrs Weight 219 lb Physical Exam Narrative: General : Patient is well developed , no acute distress, oriented x3 Head : Normal cephalic, a-traumatic. Ears : Pinnae and external canal are normal. Hearing is normal. Eyes : PERRLA, Sclera and injection are normal. No conjunctival discharge. Nose : Mucous membranes are without erythema. Throat : buccal mucosa is normal, gums are without significant recession or hypertrophy. Lungs : Equal chest rise bilaterally, no use of accessory muscles, trachea is midline. Cor : Rate and rhythm are normal. Abdomen : Soft, ND, NT, no g/r/m Extremities : No edema, no cyanosis or clubbing, dorsalis pedis pulses are present bilaterally, non-tender to palpation of calves. Upper extremities are normal bilaterally. Back : non-tender to palpation, no CVA tenderness. Neuro : CN II - XII intact, Upper and lower extremities have equal and full strength A&P Assessment and plan (1) Esophageal obstruction due to food impaction: Status: Acute Plan EGD with removal of foreign body The risks and benefits of the procedure, including bleeding, infection, intestinal perforation requiring surgery, missed lesion, or explained to the patient. He is understanding of the risks and wishes to proceed. 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
[2021-10-12] MEDS: sodium chloride 0.9% 1,000 ML 30 ML IV (13:00)
--- NOTE | 2021-10-12 14:21 | ANES.PREANE2 ---
Pre-Anesthetic Assessment Height/Weight: Height 1.55 m Weight 99.337 kg Temp Pulse Resp BP Pulse Ox 97.9 F 117 H 18 119/78 95 10/12/21 12:33 10/12/21 12:33 10/12/21 12:33 10/12/21 12:33 10/12/21 12:33 Preop Diagnosis: Hematochezia Operation Date: 10/12/21 14:00 Proposed Procedures p Foreign Body Removal(Not Applicable) - Reji Cruz DO Familial anesthetic complications: none Was Beta Verenice taken within 24 hours: N/A Was Clonidine taken within 24 hours: N/A Last intake: Intake Last Liquid Date 10/11/21 Last Liquid Time 11:30 Last Solid Date 10/11/21 Social No alcohol and No tobacco Exam alert, oriented x 3, clear to auscultation bilaterally and regular rate & rhythm Airway Submandibular: within normal limits Cervical ROM: within normal limits Mallampati: Class III Dentition: chipped CV/HEM Hypertension GI Gastroesophageal Reflux Disease esophogeal stricture Metabolic Hyperlipidemia and Morbid Obesity Neuropsych Seizure Brain tumor s/p radiation Anesthetic Plan ASA status: 3 Anesthesia: MAC Medications/Allergies Home Medications Medication Instructions Recorded Confirmed Last Taken Type aspirin 81 mg tablet,delayed 81 mg PO DAILY 90 Days #90 tab 09/05/21 09/05/21 Unknown Rx release celecoxib 100 mg capsule 100 mg PO DAILY 90 Days #90 cap 09/05/21 09/05/21 Unknown Rx cyclobenzaprine 5 mg tablet 10 mg PO TID PRN #60 tab MDD 6 tabs 09/05/21 09/05/21 Unknown Rx levetiracetam 500 mg tablet 500 mg PO BID 90 Days #180 tab 09/05/21 09/05/21 Unknown Rx levothyroxine 137 mcg tablet 137 mcg PO DAILY 90 Days #90 tab 09/05/21 09/05/21 Unknown Rx linaclotide 72 mcg capsule 72 mcg PO QAM 30 Days #30 cap 09/05/21 09/05/21 Unknown Rx (Linzess) metoprolol succinate 50 mg 50 mg PO DAILY 90 Days #90 tab 09/05/21 09/05/21 Unknown Rx tablet,extended release 24 hr pantoprazole 40 mg tablet,delayed 40 mg PO DAILY 90 Days #90 tab 09/05/21 09/05/21 Unknown Rx release (Protonix) simvastatin 20 mg tablet 20 mg PO .at bedtime 90 Days #90 09/05/21 09/05/21 Unknown Rx tab Allergies Allergy/AdvReac Type Severity Reaction Status Date / Time No Known Allergies Allergy Verified 09/05/21 07:17 [facility] Anesthesia Medical History (Updated 10/12/21 @ 12:51 by Reji Cruz DO) Chronic arthritis Cleft palate Constipation GERD (gastroesophageal reflux disease) History of brain tumor History of seizures Hypertension Hypothyroidism Social History Smoking and tobacco status: never smoked Data Anesthesia Cardiac Studies: No Data to Display
--- NOTE | 2021-10-12 14:48 | PM.DCS ---
Discharge Providers Date of Discharge: October 12, 2021 Attending Provider at Discharge: Reji Cruz DO Primary Care Provider: Maliha Stein MD Diagnoses at Discharge Discharge Diagnosis (1) Esophageal obstruction due to food impaction: Status: Acute Reason for Visit Reason for Visit: food stuck in throat Hospital Course Hospital Course Patient presented the hospital with her third episode of esophageal food bolus. She went for EGD and the foreign body was removed. Patient tolerated the procedure well and was discharged home Physical Exam Narrative: General : Patient is well developed , no acute distress, oriented x3 Head : Normal cephalic, a-traumatic. Ears : Pinnae and external canal are normal. Hearing is normal. Eyes : PERRLA, Sclera and injection are normal. No conjunctival discharge. Nose : Mucous membranes are without erythema. Throat : buccal mucosa is normal, gums are without significant recession or hypertrophy. Lungs : Equal chest rise bilaterally, no use of accessory muscles, trachea is midline. Cor : Rate and rhythm are normal. Abdomen : Soft, ND, NT, no g/r/m Extremities : No edema, no cyanosis or clubbing, dorsalis pedis pulses are present bilaterally, non-tender to palpation of calves. Upper extremities are normal bilaterally. Back : non-tender to palpation, no CVA tenderness. Neuro : CN II - XII intact, Upper and lower extremities have equal and full strength Discharge Data Studies Completed and Pending Completed Studies During Hospitalization Category Date Time Status XR chest 1V portable [id number] Urgent Exams 10/12/21 09:57 Completed Radiology Impressions Chest X-Ray 10/12/21 09:57 Impression: Atherosclerosis. Procedures Performed EGD with removal of foreign body Vitals Last Vital Signs Temp 97.3 F L 10/12/21 14:30 Pulse 98 10/12/21 14:40 Resp 18 10/12/21 14:40 BP 101/60 10/12/21 14:40 Pulse Ox 99 10/12/21 14:40 Discharge Plan Discharge Patient Disposition: Home Condition: Stable Prescriptions: Continued simvastatin 20 mg tablet 20 mg PO .at bedtime 90 Days Qty: 90 3RF pantoprazole [Protonix] 40 mg tablet,delayed release (DR/EC) 40 mg PO DAILY 90 Days Qty: 90 1RF metoprolol succinate 50 mg tablet extended release 24 hr 50 mg PO DAILY 90 Days Qty: 90 1RF Linzess 72 mcg capsule 72 mcg PO QAM 30 Days Qty: 30 5RF levothyroxine 137 mcg tablet 137 mcg PO DAILY 90 Days Qty: 90 1RF levetiracetam 500 mg tablet 500 mg PO BID 90 Days Qty: 180 1RF cyclobenzaprine 5 mg tablet 10 mg PO TID MDD 6 tabs PRN (Reason: muscle spasm) Qty: 60 2RF Rx Instructions: 1 or 2 tabs as needed celecoxib 100 mg capsule 100 mg PO DAILY 90 Days Qty: 90 1RF Rx Instructions: WITH FOOD aspirin 81 mg tablet,delayed release (DR/EC) 81 mg PO DAILY 90 Days Qty: 90 3RF Rx Instructions: with food Discharge Orders: Discharge Order (Routine); Ordered 10/12/21 Ordered By: Reji Cruz Referrals: Reji Cruz DO [Physician] - 2 weeks Maliha Stein MD [Primary Care Provider] - 4-7 days Discharge Diet: Advance as tolerated Discharge Activity: Resume usual activity Discharge Attestations Time Spent in Discharge Care*: less than 30 min Quality Metrics Clinical Quality Measures [ No reported AMI, CVA or VTE this stay] Coding Level of Care Code Acute Chg FW DC note Diagnoses Esophageal obstruction due to food impaction K22.2; T18.128A
--- NOTE | 2021-10-12 15:22 | ANE.PACU2 ---
Inpatient post-anesthesia follow up: Airway intact: Yes Vital signs: Temperature 97.6 F Pulse Rate 101 Respiratory Rate 18 Blood Pressure 134/65 Pulse Oximetry 95 Oxygen Delivery Me thod Room Air Oxygen Flow Rate 6 Fraction of Inspir ed Oxygen Hydration adequate: Yes Nausea and vomiting: No Pain level: 1 Mental status: Baseline
== END 2021-10-12 15:18 | disposition home or self-care (01) ==
LOC: ER 11:13 → GILAB 12:17
PROVIDERS: Emergency Provider Emergency Medicine; PCP Family Medicine; Visit Provider Surgery
DX: T18.128A Food in esophagus causing other injury, initial encounter (principal); K22.2 Esophageal obstruction; Z79.82 Long term (current) use of aspirin; M19.90 Unspecified osteoarthritis, unspecified site; K21.9 Gastro-esophageal reflux disease without esophagitis; E03.9 Hypothyroidism, unspecified; I10 Essential (primary) hypertension
CPT/HCPCS: 43247; 71045; J0330; J2704; J7030

== ENCOUNTER → 2021-10-23 09:03 | Outpatient (BNVA) | payer MEDICAID, SELFPAY | PROVIDERS: PCP Family Medicine; Visit Provider Family Medicine | DX: K21.9 Gastro-esophageal reflux disease without esophagitis (principal); R05.9 Cough, unspecified; R79.81 Abnormal blood-gas level | CPT/HCPCS: 71046 ==

== ENCOUNTER → 2021-10-25 09:11 | Outpatient (BNVA) | payer MEDICAID, SELFPAY | PROVIDERS: PCP Family Medicine; Visit Provider Surgery | DX: Z09 Encounter for follow-up examination after completed treatment for conditions other than malignant neoplasm (principal); T18.128A Food in esophagus causing other injury, initial encounter; K21.9 Gastro-esophageal reflux disease without esophagitis; X58.XXXA Exposure to other specified factors, initial encounter ==

== ENCOUNTER → 2022-03-14 08:34 | Outpatient (BNVA) | payer MEDICAID, SELFPAY | PROVIDERS: PCP Family Medicine; Visit Provider Family Medicine | DX: K58.9 Irritable bowel syndrome, unspecified (principal); I10 Essential (primary) hypertension; K21.9 Gastro-esophageal reflux disease without esophagitis; E03.9 Hypothyroidism, unspecified; Z87.898 Personal history of other specified conditions; R07.81 Pleurodynia; M19.90 Unspecified osteoarthritis, unspecified site; Z13.220 Encounter for screening for lipoid disorders; Z13.6 Encounter for screening for cardiovascular disorders; K58.2 Mixed irritable bowel syndrome; Z51.81 Encounter for therapeutic drug level monitoring | CPT/HCPCS: 80053; 80061; 84443; 85025 ==

== ENCOUNTER 2022-04-22 08:06 | Inpatient (IN) | payer MEDICAID, SELFPAY ==
[2022-04-22] VITALS (7 sets, daily range): BP systolic 114–149; BP diastolic 57–77; PULSE 94–126; RESP 17–30; TEMP 36.9–38.9; O2SAT 92–98; BMI 40.3
--- NOTE | 2022-04-22 08:24 | XR_ITS ---
WS: [id number] PORTABLE CHEST HISTORY: dyspnea/cough COMPARISON: 10/23/2021 Decreased lung volumes due to poor inspiration. No pneumonia. No pleural effusion or pneumothorax. Cardiac size: Normal. Mediastinum/Aorta: Normal mediastinum. No osseous abnormality seen. XR/XR chest 1V portable [id number] IMPRESSION: Unremarkable portable chest.
--- NOTE | 2022-04-22 08:38 | W.ED.AMS ---
HPI - Altered Mental Status General: Chief Complaint: Altered Mental Status Stated Complaint: AMS Time Seen by Provider: 04/22/22 08:09 Source: patient Mode of arrival: EMS History of Present Illness: 56-year-old female found down in her home her board further called EMS unknown length of time down. She is able to give her name and date of but disoriented to time place. Patient is hypoxic with a O2 sat of 80% on room air she also had an episode of diarrhea shortly after arrival was 2 L by nasal cannula her sats go from 88% to 92. She normally does not wear oxygen. She denies any chest or abdominal pain. She is very slow to answer all of her questions however. She is tachycardic and tachypneic with a temp of 1021. She denies any dysuria urgency or frequency. EMS evidently has seen her before and states this is not her normal baseline. [facility] ED PFSH: Medical History Chronic arthritis Cleft palate Constipation GERD (gastroesophageal reflux disease) History of brain tumor History of seizures Hypertension Hypothyroidism Social History Smoking and tobacco status: never smoked Female Reproductive History: Spontaneous abortions: No Course Vital Signs: Vital signs: Vital Signs Temperature 102.1 F H 04/22/22 08:08 Pulse Rate 121 H 04/22/22 08:49 Respiratory Rate 30 H 04/22/22 08:49 Blood Pressure 149/64 04/22/22 08:49 Pulse Oximetry 93 04/22/22 08:49 Oxygen Delivery Me thod 04/22/22 08:49 Oxygen Flow Rate 2 04/22/22 08:49 MDM - Altered Mental Status Lab Data 04/22/22 07:17 04/22/22 07:17 Radiology Impressions Chest X-Ray 04/22/22 08:24 IMPRESSION: Unremarkable portable chest. Laboratory Results WBC 8.6 10^3/uL (4.0-10.0) 04/22/22 07:17 RBC 5.09 10^6/uL (4.1-5.3) 04/22/22 07:17 Hgb 13.6 g/dL (11.5-15.3) 04/22/22 07:17 Hct 44.3 % (37.0-47.0) 04/22/22 07:17 MCV 87.0 fl (81-99) 04/22/22 07:17 MCH 26.7 pg (28.0-34.0) L 04/22/22 07:17 MCHC 30.7 g/dL (30.0-36.0) 04/22/22 07:17 RDW 14.2 % (12.1-15.1) 04/22/22 07:17 Plt Count 271 10^3/cmm (130-400) 04/22/22 07:17 MPV 10.8 fL (7.4-10.4) H 04/22/22 07:17 Neut % (Auto) 83.7 % 04/22/22 07:17 Lymph % (Auto) 9.6 % 04/22/22 07:17 [place] % (Auto) 5.9 % 04/22/22 07:17 Eos % (Auto) 0.1 % 04/22/22 07:17 Baso % (Auto) 0.2 % 04/22/22 07:17 Neut # (Auto) 7.21 10^3/uL (1.8-7.7) 04/22/22 07:17 Lymph # (Auto) 0.8 10^3/uL (0.8-4.8) 04/22/22 07:17 [place] # (Auto) 0.5 10^3/uL (0.2-0.9) 04/22/22 07:17 Eos # (Auto) 0.0 10^3/uL (0.0-0.8) 04/22/22 07:17 Baso # (Auto) 0.0 10^3/uL (0.0-0.1) 04/22/22 07:17 Nucleated RBC % (auto) 0 % 04/22/22 07:17 Nucleated RBCs # 0.0 /100WBC 04/22/22 07:17 Discharge Plan Discharge Condition: Stable Prescriptions: No Action aspirin 81 mg tablet,delayed release (DR/EC) 81 mg PO DAILY 90 Days Qty: 90 3RF Rx Instructions: with food Linzess 145 mcg capsule 145 mcg PO QAM 30 Days Qty: 30 5RF simvastatin 20 mg tablet 20 mg PO .at bedtime 90 Days Qty: 90 3RF pantoprazole [Protonix] 40 mg tablet,delayed release (DR/EC) 40 mg PO Q12H 90 Days Qty: 180 1RF metoprolol succinate 50 mg tablet extended release 24 hr 50 mg PO DAILY 90 Days Qty: 90 1RF levothyroxine 137 mcg tablet 137 mcg PO DAILY 90 Days Qty: 90 1RF levetiracetam 500 mg tablet 500 mg PO BID 90 Days Qty: 180 1RF cyclobenzaprine 5 mg tablet 10 mg PO TID MDD 6 tabs PRN (Reason: muscle spasm) Qty: 60 2RF Rx Instructions: 1 or 2 tabs as needed celecoxib 100 mg capsule 100 mg PO DAILY 90 Days Qty: 90 1RF Rx Instructions: WITH FOOD Referrals: Maliha Stein MD [Primary Care Provider] - Coding Level of Care Code ED Supervisor Microbiology Technologists for Yesenia Connors
[2022-04-22 08:43] LABS: Basophils % 0.2 %; Eosinophils % 0.1 %; Hematocrit 44.3 % (37.0-47.0); Hemoglobin 13.6 g/dL (11.5-15.3); Lymphocytes # 0.8 10^3/uL (0.8-4.8); Lymphocytes % 9.6 %; Mean Corpuscular HGB Conc 30.7 g/dL (30.0-36.0); Mean Corpuscular Hemoglobin 26.7 pg (28.0-34.0); Mean Platelet Volume 10.8 fL (7.4-10.4); Monocytes # 0.5 10^3/uL (0.2-0.9); Monocytes % 5.9 %; Neutrophils # 7.21 10^3/uL (1.8-7.7); Neutrophils % 83.7 %; Nucleated Red Blood Cells % 0 %; Platelet Count 271 10^3/cmm (130-400); Red Blood Count 5.09 10^6/uL (4.1-5.3); Red Cell Distribution Width 14.2 % (12.1-15.1); White Blood Count 8.6 10^3/uL (4.0-10.0)
--- NOTE | 2022-04-22 08:46 | ECG_ITS ---
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 Measurements Intervals [place] Rate: 121 P: 37 [place]: 144 QRS: -43 QRSD: 174 T: 124 QT: 368 QTc: 524 Interpretive Statements SINUS TACHYCARDIA LEFT AXIS DEVIATION [QRS AXIS < -30] LEFT BUNDLE BRANCH BLOCK [120+ ms QRS DURATION, 80+ ms Q/S IN V1/V2, 85+ ms R IN I/aVL/V5/V6] No previous ECG available for comparison Electronically Signed On 04-22-2022 15:30:57 INSURANCE RISK SURVEYOR by Madelyn Dela Cruz M.D. [email or web address]SmartSignalchoctaw health centerSomnoMedlake [facility] memorial [facility].OnBeep/store/OM/[id number]
[2022-04-22 08:59] LABS: Alanine Aminotransferase 12 U/L (0-33); Alkaline Phosphatase 144 U/L (35-105); Aspartate Amino Transferase 25 U/L (0-32); Blood Urea Nitrogen 12 mg/dL (6-20); Calcium 9.3 mg/dL (8.5-10.5); Carbon Dioxide 24 mmol/L (22-29); Chloride 98 mmol/L (98-107); Creatine Phosphokinase 94 U/L (26-192); Globulin 3.8 g/dL (1.3-4.6); Glomerular Filtration Rate 57.6 mL/min (90-130); Glucose 142 mg/dL (65-115); Lipase 26 U/L (13-60); Osmolality Calculated 282 mOsm/kg (285-295); Sodium 135 mmol/L (136-145); Total Bilirubin 0.4 mg/dL (0.15-1.2); Total Protein 7.8 g/dL (6.6-8.7)
[2022-04-22 09:00] LABS: Anion Gap 16.7 (5-19); Potassium 3.7 mmol/L (3.5-5.1)
[2022-04-22] MEDS: acetaminophen 500 mg Tablet 1000 MG PO (09:02)
[2022-04-22] MEDS: sodium chloride 0.9% 1,000 ML 999 ML IV (09:02)
[2022-04-22 09:21] LABS: Lactic Sepsis W/Reflex 1.3 mmol/L (0.5-2.2)
[2022-04-22 09:22] LABS: Troponin(5th) Baseline 46 ng/L (0-10)
[2022-04-22 09:42] LABS: ABG PCO2 41.2 mmHg (35-45); ABG PH Result 7.38 (7.35-7.45); Alveolar-Arterial Oxygen Gradi 12.7 mmHg (5-10); Arterial Blood Gas Hematocrit 38.4 % (37-47); Blood Gas Allen Test Pos; Blood Gas Sample Site Radial, right; Blood Gas Sample Type Arterial; HCO3 ABG 24.2 mmol/L (22-26); HGB O2 Sat 94.9 % (95-100); Ionized Calcium Level - ABG 1.1 mmol/L (1.1-1.4); Methemoglobin 0.4 % (0.4-1.5); Oxygen Device NC; Oxygen Saturation ABG 96.2; PO2 ABG 80.1 mmHg (80.0-100.0); Potassium Level - ABG 3.3 mmol/L (3.5-5.0); Total Hemoglobin 12.5 g/dL (12-16)
--- NOTE | 2022-04-22 10:03 | PC.NURSE ---
mother called for update and mother stated pts baseline mental status is always slightly disoriented. explained to mother that pt could not state the year and she stated that would be normal for PT.
[2022-04-22 10:05] LABS: Influenza A by IFA Negative (Negative); Influenza B by IFA Negative (Negative)
--- NOTE | 2022-04-22 10:08 | CT_ITS ---
WS: [id number] CT HEAD TECHNIQUE: Noncontrast CT of the head obtained from the skullbase to the vertex. CLINICAL INFORMATION: AMS COMPARISON: CT head 2019 DLP: 1046.[address] scans at [facility] use at least one of these dose optimization techniques: automated e xposure control; mA and/or kV adjustment per patient size (includes targeted exams where dose is matc hed to clinical indication); or iterative reconstruction. FINDINGS: No evidence of intracranial hemorrhage or mass effect. Ventricular system and basal cisterns are huang nt. Mild small vessel changes with moderate parenchymal volume loss. Chronic encephalomalacia LEFT pa rietal lobe is unchanged from previous. Benign basal ganglia calcifications. Encephalomalacia involving the cerebellar vermis. This is unchan ged from previous. Vascular calcification. Paranasal sinuses and mastoid air cells are well aerated. Prior postoperative changes LEFT frontal, LEFT parietal and midline vertex craniotomies. aSmall extra -axial lesion likely meningioma overlying the inferior LEFT frontal lobe measuring 1.1 x 0.8 x 1.4cm along the orbital roof. CT/CT head wo con* [id number] IMPRESSION: 1. No evidence of intracranial hemorrhage or mass effect. 2. Mild small vessel changes with moderate parenchymal volume loss. 3. Small meningioma overlying the inferior frontal lobe along the superior orb ital rim measuring 1.1 x 0.8 x 1.4 cm likely small meningioma. This is better v isualized but appears stable since 2019. 4. No other suspicious findings.
[2022-04-22 10:34] LABS: Acetaminophen < 5.0 ug/mL (10-30); Alcohol Level < 10 mg/dL (0-10); Salicylate < 0.3 mg/dL (3-10)
--- NOTE | 2022-04-22 10:39 | CT_ITS ---
WS: [id number] CTA OF THE CHEST WITH PULMONARY EMBOLISM PROTOCOL TECHNIQUE: High-resolution contrast enhanced CTA of the chest with coronal and sagittal reformatted i josé manuels with pulmonary embolism protocol. MIP images are also reviewed. CLINICAL INFORMATION: hypoxia COMPARISON: 2018 DLP: 362.[address] scans at [facility] use at least one of these dose optimization techniques: automated e xposure control; mA and/or kV adjustment per patient size (includes targeted exams where dose is matc hed to clinical indication); or iterative reconstruction. FINDINGS: Shallow inspiration. Cardiomegaly. Normal caliber thoracic aorta. Aortic calcification. Normal calibe r descending thoracic aorta. Proximal main pulmonary arteries are normal.No evidence of pulmonary emb olus. Shallow inspiration with slight hazy groundglass infiltrates can be seen with edema or viral pn eumonitis. No focal pneumonia. Mild bronchovascular thickening. Slightly prominent hilar lymph nodes nonspecific but likely reactive. Normal GE junction. Noncontrast liver and spleen are normal. No axillary lymphadenopathy. No mediasti nal or hilar lymphadenopathy. Partially visualized RIGHT upper pole renal cyst measuring 2.[address]/CT angio chest PE protcl [id number] IMPRESSION: 1. No evidence of pulmonary embolus. 2. Shallow inspiration with slight hazy groundglass infiltrates can be seen wi th edema or slight viral pneumonitis. 3. Cardiomegaly. 4. No other acute findings.
[2022-04-22 10:45] LABS: Adenovirus Not Detected (NOT DETECT); Chlamydia Pneumoniae Not Detected (NOT DETECT); Coronavirus 229E,HKU1,NL63,OC4 Not Detected (NOT DETECT); Human Metapneumovirus Not Detected (NOT DETECT); Human Rhinovirus/Enterovirus Not Detected (NOT DETECT); Influenza A Detected (NOT DETECT); Influenza A H1 Not Detected (NOT DETECT); Influenza A H1-2009 Detected (NOT DETECT); Influenza A H3 Not Detected (NOT DETECT); Influenza B Not Detected (NOT DETECT); Mycoplasma Pneumoniae Not Detected (NOT DETECT); Parainfluenza Virus Type 1 Not Detected (NOT DETECT); Parainfluenza Virus Type 2 Not Detected (NOT DETECT); Parainfluenza Virus Type 3 Not Detected (NOT DETECT); Parainfluenza Virus Type 4 Not Detected (NOT DETECT); Respiratory Syncytial Virus A Not Detected (NOT DETECT); Respiratory Syncytial Virus B Not Detected (NOT DETECT); SARS-COV-2 Not Detected (NOT DETECT)
[2022-04-22 10:46] LABS: Influenza A Detected (NOT DETECT); Influenza A H1 Not Detected (NOT DETECT); Influenza A H1-2009 Detected (NOT DETECT); Influenza A H3 Not Detected (NOT DETECT); Influenza B Not Detected (NOT DETECT)
--- NOTE | 2022-04-22 10:51 | ECG_ITS ---
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 Measurements Intervals [place] Rate: 101 P: 55 [place]: 135 QRS: -33 QRSD: 181 T: 131 QT: 437 QTc: 567 Interpretive Statements SINUS TACHYCARDIA LEFT AXIS DEVIATION [QRS AXIS < -30] LEFT BUNDLE BRANCH BLOCK [120+ ms QRS DURATION, 80+ ms Q/S IN V1/V2, 85+ ms R IN I/aVL/V5/V6] Compared to ECG 04/22/2022 08:46:49 No significant changes Electronically Signed On 04-22-2022 15:33:32 MIRROR FINISHING MACHINE OPERATOR by Madelyn Dela Cruz M.D. [email or web address] [email or web address] health.[email or web address]/store/OM/[id number]
[2022-04-22] MEDS: iohexol 350 mg/mL 500 mL Btl (per mL) IV (10:58)
[2022-04-22 11:13] LABS: Blood Urine 3+ (Negative); Glucose Urine UA Norm (Normal); Ketones Urine 1+ (Negative); Protein Urine 1+ (Negative); Specific Gravity, Urine 1.025 (1.005-1.030); Urine Appearance Clear (CLEAR); Urine Color Yellow (Yellow); pH Urine 5 (5-7)
[2022-04-22 11:14] LABS: Add Urine Culture? Yes; Add Urine Microscopic? YES; Bacteria Urine 4+ /hpf; Bilirubin Urine Neg (Negative); Leukocyte Esterase Urine Negative (Negative); Nitrate Urine Negative (Negative); RBC Urine 0-4 /hpf (0-2); Urobilinogen Urine 1 mg/dL (Negative)
[2022-04-22 11:15] LABS: Amphetamines Screen Urine Negative (Negative); Barbiturates Screen Urine Negative (Negative); Benzodiazepines Screen Urine Negative (Negative); Cocaine Screen Urine Negative (Negative); Opiate Screen Urine Negative (Negative); PCP Screen Urine Negative (Negative); THC Screen Urine Positive (Negative)
[2022-04-22 12:16] LABS: Ammonia 25 umol/L (11-51)
[2022-04-22 12:54] LABS: Troponin 5 2HR 51.04 ng/L (0-10)
[2022-04-22 12:59] LABS: Troponin 5 2HR Delta 5.04 ABS# (0-10)
--- NOTE | 2022-04-22 14:29 | ED_ITS ---
HPI - General Adult General: Chief complaint: Altered Mental Status Stated complaint: AMS Time Seen by Provider: 04/22/22 08:09 Mode of arrival: EMS History of Present Illness: 56-year-old female found down in her home boyfriend, who called EMS unknown length of time down. She is able to give her name and date of but disoriented to time place. Patient is hypoxic with a O2 sat of 80% on room air she also had an episode of diarrhea shortly after ar rival was 2 L by nasal cannula her sats go from 88% to 92. She normally does not wear oxygen. She denies any chest or abdominal pain. She is very slow to answer all of her questions however. She is tachycardic and tachypneic with a temp of 1021. She denies any dysuria urgency or frequency. EMS evidently has seen her before and states this is not her normal baseline. Onset (ago): unknown Severity: moderate Relieving factors: none Exacerbating factors: none Associated symptoms: Reports confusion, cough, dyspnea, malaise, short of breath and weakness; Deny chest pain, diaphoresis, decreased appetite, fevers/chills, headache(s), nausea, rash, palpitations, seizures, syncope or vomiting Treatments prior to arrival: none Review of Systems Const: Reports: fever(s) and malaise; Denies: diaphoresis ENMT: Denies: throat pain, ear or mastoid pain, nasal discharge or nasal congestion Card: Denies: chest pain, palpitations or syncope Resp: Reports: dyspnea GI: Denies: nausea or vomiting : Denies: flank pain, difficulty voiding, dysuria, urinary frequency or urinary urgency Skin/Breast: Denies: rash Neuro: Reports: confusion; Denies: headache(s) [facility] ED PFSH: Medical History Chronic arthritis Cleft palate Constipation GERD (gastroesophageal reflux disease) History of brain tumor History of seizures Hypertension Hypothyroidism Social History Smoking and tobacco status: never smoked Female Reproductive History: Spontaneous abortions: No Physical Exam Const: GENERAL APPEARANCE: cooperative and comfortable HENMT: COMMON NORMALS: normocephalic, atraumatic and hearing grossly normal bilaterally HEAD & SCALP: normocephalic and atraumatic Resp: AUSCULTATION: rhonchi and wheezes Cardio: COMMON NORMALS: regular rate, regular rhythm and No murmurs present (Cardio) RATE: regular rate RHYTHM: regular rhythm GI: COMMON NORMALS: Soft to palpation and No hepatosplenomegaly present AUSCULTATION: Yes normoactive bowel sounds PALPATION: Yes Soft to palpation, No Tenderness to palpation present (GI), No Guarding due to palpation present (GI) and Yes No hepatosplenomegaly present Extremity: COMMON NORMALS: normal to inspection, capillary refill normal, no clubbing, cyanosis or edema, no calf tenderness and no pedal edema Skin: COMMON NORMALS: no rashes or lesions noted GENERAL SKIN EXAM: no rashes or lesions noted Course Vital Signs: Vital signs: Vital Signs Temperature 98.5 F 04/22/22 09:46 Pulse Rate 100 04/22/22 12:00 Respiratory Rate 30 H 04/22/22 08:49 Blood Pressure 114/59 04/22/22 12:00 Pulse Oximetry 94 04/22/22 12:00 Oxygen Delivery Me thod 04/22/22 12:00 Oxygen Flow Rate 2 04/22/22 12:00 MDM - General Adult Medical Decision Making Labs imaging and EKG reviewed. EKG shows no acute changes [id number] pleasant previously. CT of head shows small meningioma unchanged and stable. She continues to be hypoxic chest x-ray was negative flu and COVID were negative CTA of the chest no pulmonary emboli but showed groundglass infiltrates suggestive of viral pneumonitis. Given her fever suspect that that is what the cause of her hypoxia is discussed Dr. brinda dewitt. Lab Data 04/22/22 07:17 04/22/22 07:17 Radiology Impressions Chest X-Ray 04/22/22 08:24 IMPRESSION: Unremarkable portable chest. Head CT 04/22/22 10:08 IMPRESSION: 1. No evidence of intracranial hemorrhage or mass effect. 2. Mild small vessel changes with moderate parenchymal volume loss. 3. Small meningioma overlying the inferior frontal lobe along the superior orbital rim measuring 1.1 x 0.8 x 1.4 cm likely small meningioma. This is better visualized but appears stable since 2019. 4. No other suspicious findings. Chest CTA 04/22/22 10:39 IMPRESSION: 1. No evidence of pulmonary embolus. 2. Shallow inspiration with slight hazy groundglass infiltrates can be seen with edema or slight viral pneumonitis. 3. Cardiomegaly. 4. No other acute findings. Laboratory Results WBC 8.6 10^3/uL (4.0-10.0) 04/22/22 07:17 RBC 5.09 10^6/uL (4.1-5.3) 04/22/22 07:17 Hgb 13.6 g/dL (11.5-15.3) 04/22/22 07:17 Hct 44.3 % (37.0-47.0) 04/22/22 07:17 MCV 87.0 fl (81-99) 04/22/22 07:17 MCH 26.7 pg (28.0-34.0) L 04/22/22 07:17 MCHC 30.7 g/dL (30.0-36.0) 04/22/22 07:17 RDW 14.2 % (12.1-15.1) 04/22/22 07:17 Plt Count 271 10^3/cmm (130-400) 04/22/22 07:17 MPV 10.8 fL (7.4-10.4) H 04/22/22 07:17 Neut % (Auto) 83.7 % 04/22/22 07:17 Lymph % (Auto) 9.6 % 04/22/22 07:17 [place] % (Auto) 5.9 % 04/22/22 07:17 Eos % (Auto) 0.1 % 04/22/22 07:17 Baso % (Auto) 0.2 % 04/22/22 07:17 Neut # (Auto) 7.21 10^3/uL (1.8-7.7) 04/22/22 07:17 Lymph # (Auto) 0.8 10^3/uL (0.8-4.8) 04/22/22 07:17 [place] # (Auto) 0.5 10^3/uL (0.2-0.9) 04/22/22 07:17 Eos # (Auto) 0.0 10^3/uL (0.0-0.8) 04/22/22 07:17 Baso # (Auto) 0.0 10^3/uL (0.0-0.1) 04/22/22 07:17 Nucleated RBC % (auto) 0 % 04/22/22 07:17 Nucleated RBCs # 0.0 /100WBC 04/22/22 07:17 Specimen Type Arterial 04/22/22 09:29 Sample Site Radial, right 04/22/22 09:29 ABG pH 7.38 (7.35-7.45) 04/22/22 09: ABG pCO2 41.2 mmHg (35-45) 04/22/22 09: ABG pO2 80.1 mmHg (80.0-100.0) 04/22/22 09: ABG HCO3 24.2 mmol/L (22-26) 04/22/22 09: ABG O2 Saturation 96.2 04/22/22 09: ABG Base Excess -1.0 mmol/L (-2.0-2.0) 04/22/22 09: Yang Test Pos 04/22/22 09: A-a O2 Gradient 12.7 mmHg (5-10) H 04/22/22 09:29 Hematocrit 38.4 % (37-47) 04/22/22 09:29 Hgb O2 Saturation 94.9 % (95-100) L 04/22/22 09:29 Carboxyhemoglobin 1.0 %THgb (0.4-20.1) 04/22/22 09: Methemoglobin 0.4 % (0.4-1.5) 04/22/22 09:29 Total Hemoglobin 12.5 g/dL (12-16) 04/22/22 09: Sodium 139.0 mmol/L (131-143) 04/22/22 09:29 Potassium 3.3 mmol/L (3.5-5.0) L 04/22/22 09:29 Glucose 108.0 mg/dL (70-115) 04/22/22 09:29 Ionized Calcium 1.1 mmol/L (1.1-1.4) 04/22/22 09:29 O2 Delivery Device Nc 04/22/22 09:29 FiO2 32.0 % 04/22/22 09:29 Manager Process Improvement ID Anonymous 04/22/22 09:29 Sodium 135 mmol/L (136-145) L 04/22/22 07:17 Potassium 3.7 mmol/L (3.5-5.1) 04/22/22 07:17 Chloride 98 mmol/L (98-107) 04/22/22 07:17 Carbon Dioxide 24 mmol/L (22-29) 04/22/22 07:17 Anion Gap 16.7 (5-19) 04/22/22 07:17 BUN 12 mg/dL (6-20) 04/22/22 07:17 Creatinine 1.0 mg/dL (0.5-0.9) H 04/22/22 07:17 GFR Calculation 57.6 mL/min (90-130) L 04/22/22 07:17 Glucose 142 mg/dL (65-115) H 04/22/22 07:17 Calculated Osmolality 282 mOsm/kg (285-295) L 04/22/22 07:17 Lactic Acid 1.3 mmol/L (0.5-2.2) 04/22/22 08:51 Calcium 9.3 mg/dL (8.5-10.5) 04/22/22 07:17 Magnesium 2.0 mg/dL (1.7-2.3) 04/22/22 07:17 Total Bilirubin 0.4 mg/dL (0.15-1.2) 04/22/22 07:17 AST 25 U/L (0-32) 04/22/22 07:17 ALT 12 U/L (0-33) 04/22/22 07:17 Alkaline Phosphatase 144 U/L (35-105) H 04/22/22 07:17 Ammonia 25 umol/L (11-51) 04/22/22 11:41 Creatine Kinase 94 U/L (26-192) 04/22/22 07:17 Troponin T Baseline 46 ng/L (0-10) H 04/22/22 07:17 Troponin T 120 Minute 51.04 ng/L (0-10) H 04/22/22 11:55 Delta Troponin T 5.04 ABS# (0-10) 04/22/22 11:55 Total Protein 7.8 g/dL (6.6-8.7) 04/22/22 07:17 Albumin 4.0 g/dL (3.5-5.2) 04/22/22 07:17 Globulin 3.8 g/dL (1.3-4.6) 04/22/22 07:17 Lipase 26 U/L (13-60) 04/22/22 07:17 Urine Color Yellow (Yellow) 04/22/22 10:45 Urine Appearance Clear (CLEAR) 04/22/22 10:45 Urine pH 5 (5-7) 04/22/22 10:45 Ur Specific [place] 1.025 (1.005-1.030) 04/22/22 10:45 Urine Protein 1+ (Negative) H 04/22/22 10:45 Urine Glucose (UA) Norm (Normal) 04/22/22 10:45 Urine Ketones 1+ (Negative) H 04/22/22 10:45 Urine Blood 3+ (Negative) H 04/22/22 10:45 Urine Nitrate Negative (Negative) 04/22/22 10:45 Urine Bilirubin Neg (Negative) 04/22/22 10:45 Urine Urobilinogen 1 mg/dL (Negative) H 04/22/22 10:45 Ur Leukocyte Esterase Negative (Negative) 04/22/22 10:45 Urine RBC 0-4 /hpf (0-2) H 04/22/22 10:45 Urine WBC None /hpf (0-5) 04/22/22 10:45 Ur Squamous Epith Cells 5-10 /hpf (0-5) H 04/22/22 10:45 Amorphous Sediment Not Reportable 04/22/22 10:45 Urine Bacteria 4+ /hpf (NONE) H 04/22/22 10:45 Nasal Influ A H1 2009 PCR Detected (NOT DETECT) A 04/22/22 10:46 Salicylates < 0.3 mg/dL (3-10) L 04/22/22 07:17 Urine Opiates Screen Negative ng/mL (Negative) 04/22/22 10:45 Acetaminophen < 5.0 ug/mL (10-30) L 04/22/22 07:17 Ur Barbiturates Screen Negative ng/mL (Negative) 04/22/22 10:45 Ur Phencyclidine Scrn Negative ng/mL (Negative) 04/22/22 10:45 Ur Amphetamines Screen Negative ng/mL (Negative) 04/22/22 10:45 U Benzodiazepines Scrn Negative ng/mL (Negative) 04/22/22 10:45 Urine Cocaine Screen Negative ng/mL (Negative) 04/22/22 10:45 U Marijuana (THC) Screen Positive ng/mL (Negative) H 04/22/22 10:45 Ethyl Alcohol < 10 mg/dL (0-10) 04/22/22 07:17 Coronavirus 229E (PCR) Not detected (NOT DETECT) 04/22/22 08:45 Influenza A (H1) PCR Not detected (NOT DETECT) 04/22/22 10:46 Influenza A (H3) PCR Not detected (NOT DETECT) 04/22/22 10:46 Influenza Type A Ag Negative (Negative) 04/22/22 08:45 Influenza Type A (PCR) Detected (NOT DETECT) A 04/22/22 10:46 Influenza Type B Ag Negative (Negative) 04/22/22 08:45 Influenza Type B (PCR) Not detected (NOT DETECT) 04/22/22 10:46 RSV Antigen Negative (Negative) 04/22/22 12:30 SARS-CoV-2 (PCR) Not detected (NOT DETECT) 04/22/22 08:45 Discharge Plan Discharge Patient Disposition: Admitted As Inpatient Clinical Impression: Viral pneumonitis, Hypoxia Condition: Stable Prescriptions: No Action aspirin 81 mg tablet,delayed release (DR/EC) 81 mg PO DAILY 90 Days Qty: 90 3RF Rx Instructions: with food Linzess 145 mcg capsule 145 mcg PO QAM 30 Days Qty: 30 5RF pantoprazole [Protonix] 40 mg tablet,delayed release (DR/EC) 40 mg PO Q12H 90 Days Qty: 180 1RF metoprolol succinate 50 mg tablet extended release 24 hr 50 mg PO DAILY 90 Days Qty: 90 1RF levothyroxine 137 mcg tablet 137 mcg PO DAILY 90 Days Qty: 90 1RF levetiracetam 500 mg tablet 500 mg PO BID 90 Days Qty: 180 1RF cyclobenzaprine 5 mg tablet 10 mg PO TID MDD 6 tabs PRN (Reason: muscle spasm) Qty: 60 2RF Rx Instructions: 1 or 2 tabs as needed celecoxib 100 mg capsule 100 mg PO DAILY 90 Days Qty: 90 1RF Rx Instructions: WITH FOOD simvastatin 20 mg tablet 20 mg PO BEDTIME Referrals: Maliha Stein MD [Primary Care Provider] - Coding Level of Care Code ED Softball Coach for Yesenia Connors
[2022-04-22 15:53] LABS: Troponin 5 6HR 39.61 ng/L (0-10)
[2022-04-22 15:57] LABS: Troponin 5 6HR Delta -6.39 ng/L (0-12)
[2022-04-22] MEDS: sodium chloride 0.9% 1,000 ML 100 ML IV (16:27)
--- NOTE | 2022-04-22 20:49 | P.HP_ITS ---
Providers/Chief Complaint Admitting Physician: Rupal Cisneros MD Primary Care Provider: Maliha Stein MD Chief Complaint: AMS History of Present Illness Kim Wilks is a 56 year old female who presented to the emergency room after being found by her significant other confused and not responding as she usually does. At baseline she can answer questions and provide her name, date of , date and time but today was really only oriented to person. On arrival she had hypoxemia with oxygen saturation in the 80s. Improved with 2 L by nasal cannula. No personal history of lung disease or use of oxygen therapy before. She also had a notable fever up to 102 degrees. She had some loose stools in the emergency room. No known sick contacts. She did not have influenza shot this year. Denies history of pneumonia shot. Did receive 3 COVID vaccinations. Chest x-ray was not that revealing. Patient ended up getting a CTA of the chest due to persistent tachycardia and hypoxemia. This showed groundglass opacities suspicious for viral pneumonitis. Viral testing eventually demonstrated H1 N1 2009 influenza variant. Best I can tell symptom onset was a couple of days ago by patient's history. She reports feeling tired and not well for 1 to 2 days. Given current need for oxygen she is being admitted for further care. History is obtained from her and review of available old records. Significant other and family not available at the time of my evaluation. Review of Systems Const: Reports: fever(s), chills, body aches, fatigue and malaise Eyes: Denies: change in vision ENMT: Reports: throat pain and nasal congestion Card: Reports: dyspnea on exertion; Denies: chest pain or edema Resp: Reports: dyspnea, productive cough and non-productive cough; Denies: pain on inspiration or hemoptysis GI: Reports: diarrhea (Today) and constipation (Chronically constipated); Denies: abdominal pain, nausea or vomiting : Denies: difficulty voiding Musc: Reports: extremity pain (Has chronic joint pains, none or worse than usual) and other (Generalized aches and pains) Skin/Breast: Denies: rash or pruritus Neuro: Reports: headache(s), confusion, difficulty communicating thoughts and other (No new focal weakness); Denies: numbness in extremities Dick/Lymph: Denies: easy bleeding Medications/Allergies Home Medications Medication Instructions Recorded Confirmed Last Taken Type aspirin 81 mg tablet,delayed 81 mg PO DAILY 90 days #90 tabs 09/05/21 04/22/22 04/21/22 Rx release celecoxib 100 mg capsule 100 mg PO DAILY 90 days #90 caps 03/14/22 04/22/22 04/21/22 Rx cyclobenzaprine 5 mg tablet 10 mg PO TID PRN muscle spasm #60 03/14/22 04/22/22 Unknown Rx tabs levetiracetam 500 mg tablet 500 mg PO BID 90 days #180 tabs 03/14/22 04/22/22 04/21/22 Rx levothyroxine 137 mcg tablet 137 mcg PO DAILY 90 days #90 tabs 03/14/22 04/22/22 04/21/22 Rx linaclotide 145 mcg capsule 145 mcg PO QAM 30 days #30 caps 03/14/22 04/22/22 04/21/22 Rx metoprolol succinate 50 mg 50 mg PO DAILY 90 days #90 tabs 03/14/22 04/22/22 04/21/22 Rx tablet,extended release 24 hr pantoprazole 40 mg tablet,delayed 40 mg PO Q12H 90 days #180 tabs 03/14/22 04/22/22 04/21/22 Rx release (Protonix) simvastatin 20 mg tablet 20 mg PO BEDTIME 04/22/22 04/22/22 04/21/22 History Allergies Allergy/AdvReac Type Severity Reaction Status Date / Time No Known Allergies Allergy Verified 03/14/22 07:02 PFSH Acute PFSH: Medical History (Updated 04/22/22 @ 21:37 by Rupal Cisneros MD) Bilateral renal cysts Chronic arthritis Cleft palate Constipation Food impaction of esophagus Recurrent GERD (gastroesophageal reflux disease) History of brain tumor Reports benign, impacted memory History of seizures Hypertension Hypothyroidism IBS (irritable bowel syndrome) 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 2.8 cm, body of pancreas, suspicious for mucinous cystic neoplasm, stable size on last imaging Surgical History (Updated 04/22/22 @ 21:04 by Rupal Cisneros MD) History of esophagogastroduodenoscopy (EGD) 10/17/21 for esophageal food impaction, no abnormalities otherwise noted Family History (Updated 04/22/22 @ 21:15 by Rupal Cisneros MD) Other Family history unknown Social History (Updated 12/26/22 @ 21:14 by Rupal Cisneros MD) Smoking and tobacco status: never smoked Alcohol intake: never Substance/Drug Use: current Other substance/drug use details: Patient denies drug use Household members: significant other Female Reproductive History: Spontaneous abortions: No Vitals/I&O/Wt Last Vital Signs Temp 98.5 F 04/22/22 09:46 Pulse 94 04/22/22 20:00 Resp 17 04/22/22 20:00 BP 128/74 04/22/22 20:00 Pulse Ox 98 04/22/22 20:00 O2 Del Method 04/22/22 16:07 O2 Flow Rate 2 04/22/22 16:13 04/22/22 04/22/22 04/22/22 06:59 14:59 22:59 Intake Total 1000 / 1000 Balance 1000 / 1000 Weight last 48 hrs Weight 96.814 kg Physical Exam Narrative: Constitutional: Asleep, arousable, cooperative, looks acutely ill HEENT: Cheeks are more prominent than bitemporal areas but otherwise normocephalic, extraocular movements are intact, oropharynx with dry membranes, mild erythema, no exudates, clear rhinorrhea Neck: Supple Respiratory: Fine wheezes noted bilaterally, scattered rhonchi on the right more so than left, no accessory muscle use, oxygen in place, speaks in few word sentences Cardiovascular: Regular rate and rhythm Abdomen: Soft, nontender, positive bowel sounds Extremities: No pitting edema or calf tenderness Skin: Dry, pale, no bruises or rashes Neuro: Speech clear, face symmetric, handgrip equal Psych: Oriented to person and place and situation, not able to recall all details, flat affect Data 04/22/22 07:17 04/22/22 07:17 Other Labs: Radiology Impressions Chest X-Ray 04/22/22 08:24 IMPRESSION: Unremarkable portable chest. Head CT 04/22/22 10:08 IMPRESSION: 1. No evidence of intracranial hemorrhage or mass effect. 2. Mild small vessel changes with moderate parenchymal volume loss. 3. Small meningioma overlying the inferior frontal lobe along the superior orbital rim measuring 1.1 x 0.8 x 1.4 cm likely small meningioma. This is better visualized but appears stable since 2019. 4. No other suspicious findings. Chest CTA 04/22/22 10:39 IMPRESSION: 1. No evidence of pulmonary embolus. 2. Shallow inspiration with slight hazy groundglass infiltrates can be seen with edema or slight viral pneumonitis. 3. Cardiomegaly. 4. No other acute findings. Laboratory Results WBC 8.6 10^3/uL (4.0-10.0) 04/22/22 07:17 RBC 5.09 10^6/uL (4.1-5.3) 04/22/22 07:17 Hgb 13.6 g/dL (11.5-15.3) 04/22/22 07:17 Hct 44.3 % (37.0-47.0) 04/22/22 07:17 MCV 87.0 fl (81-99) 04/22/22 07:17 MCH 26.7 pg (28.0-34.0) L 04/22/22 07:17 MCHC 30.7 g/dL (30.0-36.0) 04/22/22 07:17 RDW 14.2 % (12.1-15.1) 04/22/22 07:17 Plt Count 271 10^3/cmm (130-400) 04/22/22 07:17 MPV 10.8 fL (7.4-10.4) H 04/22/22 07:17 Neut % (Auto) 83.7 % 04/22/22 07:17 Lymph % (Auto) 9.6 % 04/22/22 07:17 [place] % (Auto) 5.9 % 04/22/22 07:17 Eos % (Auto) 0.1 % 04/22/22 07:17 Baso % (Auto) 0.2 % 04/22/22 07:17 Neut # (Auto) 7.21 10^3/uL (1.8-7.7) 04/22/22 07:17 Lymph # (Auto) 0.8 10^3/uL (0.8-4.8) 04/22/22 07:17 [place] # (Auto) 0.5 10^3/uL (0.2-0.9) 04/22/22 07:17 Eos # (Auto) 0.0 10^3/uL (0.0-0.8) 04/22/22 07:17 Baso # (Auto) 0.0 10^3/uL (0.0-0.1) 04/22/22 07:17 Nucleated RBC % (auto) 0 % 04/22/22 07:17 Nucleated RBCs # 0.0 /100WBC 04/22/22 07:17 Specimen Type Arterial 04/22/22 09:29 Sample Site Radial, right 04/22/22 09:29 ABG pH 7.38 (7.35-7.45) 04/22/22 09:29 ABG pCO2 41.2 mmHg (35-45) 04/22/22 09:29 ABG pO2 80.1 mmHg (80.0-100.0) 04/22/22 09:29 ABG HCO3 24.2 mmol/L (22-26) 04/22/22 09:29 ABG O2 Saturation 96.2 04/22/22 09:29 ABG Base Excess -1.0 mmol/L (-2.0-2.0) 04/22/22 09:29 Yang Test Pos 04/22/22 09:29 A-a O2 Gradient 12.7 mmHg (5-10) H 04/22/22 09:29 Hematocrit 38.4 % (37-47) 04/22/22 09:29 Hgb O2 Saturation 94.9 % (95-100) L 04/22/22 09:29 Carboxyhemoglobin 1.0 %THgb (0.4-20.1) 04/22/22 09:29 Methemoglobin 0.4 % (0.4-1.5) 04/22/22 09:29 Total Hemoglobin 12.5 g/dL (12-16) 04/22/22 09:29 Sodium 139.0 mmol/L (131-143) 04/22/22 09:29 Potassium 3.3 mmol/L (3.5-5.0) L 04/22/22 09:29 Glucose 108.0 mg/dL (70-115) 04/22/22 09:29 Ionized Calcium 1.1 mmol/L (1.1-1.4) 04/22/22 09:29 O2 Delivery Device Nc 04/22/22 09:29 FiO2 32.0 % 04/22/22 09:29 International Marketing Coordinator ID [email or web address] 04/22/22 09:29 Sodium 135 mmol/L (136-145) L 04/22/22 07:17 Potassium 3.7 mmol/L (3.5-5.1) 04/22/22 07:17 Chloride 98 mmol/L (98-107) 04/22/22 07:17 Carbon Dioxide 24 mmol/L (22-29) 04/22/22 07:17 Anion Gap 16.7 (5-19) 04/22/22 07:17 BUN 12 mg/dL (6-20) 04/22/22 07:17 Creatinine 1.0 mg/dL (0.5-0.9) H 04/22/22 07:17 GFR Calculation 57.6 mL/min (90-130) L 04/22/22 07:17 Glucose 142 mg/dL (65-115) H 04/22/22 07:17 Calculated Osmolality 282 mOsm/kg (285-295) L 04/22/22 07:17 Lactic Acid 1.3 mmol/L (0.5-2.2) 04/22/22 08:51 Calcium 9.3 mg/dL (8.5-10.5) 04/22/22 07:17 Magnesium 2.0 mg/dL (1.7-2.3) 04/22/22 07:17 Total Bilirubin 0.4 mg/dL (0.15-1.2) 04/22/22 07:17 AST 25 U/L (0-32) 04/22/22 07:17 ALT 12 U/L (0-33) 04/22/22 07:17 Alkaline Phosphatase 144 U/L (35-105) H 04/22/22 07:17 Ammonia 25 umol/L (11-51) 04/22/22 11:41 Creatine Kinase 94 U/L (26-192) 04/22/22 07:17 Troponin T Baseline 46 ng/L (0-10) H 04/22/22 07:17 Troponin T 120 Minute 51.04 ng/L (0-10) H 04/22/22 11:55 Delta Troponin T 5.04 ABS# (0-10) 04/22/22 11:55 Troponin T Hi Sens 6Hr 39.61 ng/L (0-10) H 04/22/22 15:22 Troponin T Hi Sens 6Hr Delta -6.39 ng/L (0-12) L 04/22/22 15:22 Total Protein 7.8 g/dL (6.6-8.7) 04/22/22 07:17 Albumin 4.0 g/dL (3.5-5.2) 04/22/22 07:17 Globulin 3.8 g/dL (1.3-4.6) 04/22/22 07:17 Lipase 26 U/L (13-60) 04/22/22 07:17 Urine Color Yellow (Yellow) 04/22/22 10:45 Urine Appearance Clear (CLEAR) 04/22/22 10:45 Urine pH 5 (5-7) 04/22/22 10:45 Ur Specific [place] 1.025 (1.005-1.030) 04/22/22 10:45 Urine Protein 1+ (Negative) H 04/22/22 10:45 Urine Glucose (UA) Norm (Normal) 04/22/22 10:45 Urine Ketones 1+ (Negative) H 04/22/22 10:45 Urine Blood 3+ (Negative) H 04/22/22 10:45 Urine Nitrate Negative (Negative) 04/22/22 10:45 Urine Bilirubin Neg (Negative) 04/22/22 10:45 Urine Urobilinogen 1 mg/dL (Negative) H 04/22/22 10:45 Ur Leukocyte Esterase Negative (Negative) 04/22/22 10:45 Urine RBC 0-4 /hpf (0-2) H 04/22/22 10:45 Urine WBC None /hpf (0-5) 04/22/22 10:45 Ur Squamous Epith Cells 5-10 /hpf (0-5) H 04/22/22 10:45 Amorphous Sediment Not Reportable 04/22/22 10:45 Urine Bacteria 4+ /hpf (NONE) H 04/22/22 10:45 Nasal Influ A H1 2009 PCR Detected (NOT DETECT) A 04/22/22 10:46 Salicylates < 0.3 mg/dL (3-10) L 04/22/22 07:17 Urine Opiates Screen Negative ng/mL (Negative) 04/22/22 10:45 Acetaminophen < 5.0 ug/mL (10-30) L 04/22/22 07:17 Ur Barbiturates Screen Negative ng/mL (Negative) 04/22/22 10:45 Ur Phencyclidine Scrn Negative ng/mL (Negative) 04/22/22 10:45 Ur Amphetamines Screen Negative ng/mL (Negative) 04/22/22 10:45 U Benzodiazepines Scrn Negative ng/mL (Negative) 04/22/22 10:45 Urine Cocaine Screen Negative ng/mL (Negative) 04/22/22 10:45 U Marijuana (THC) Screen Positive ng/mL (Negative) H 04/22/22 10:45 Ethyl Alcohol < 10 mg/dL (0-10) 04/22/22 07:17 Coronavirus 229E (PCR) Not detected (NOT DETECT) 04/22/22 08:45 Influenza A (H1) PCR Not detected (NOT DETECT) 04/22/22 10:46 Influenza A (H3) PCR Not detected (NOT DETECT) 04/22/22 10:46 Influenza Type A Ag Negative (Negative) 04/22/22 08:45 Influenza Type A (PCR) Detected (NOT DETECT) A 04/22/22 10:46 Influenza Type B Ag Negative (Negative) 04/22/22 08:45 Influenza Type B (PCR) Not detected (NOT DETECT) 04/22/22 10:46 RSV Antigen Negative (Negative) 04/22/22 12:30 SARS-CoV-2 (PCR) Not detected (NOT DETECT) 04/22/22 08:45 Micro: Microbiology 04/22/22 08:55 Blood Culture - Preliminary Blood SPECIMEN COLLECTED 04/22/22 08:51 Blood Culture - Preliminary Blood SPECIMEN COLLECTED A&P Assessment and plan (1) Hypoxia: Secondary to below, associated with alteration in mental status (2) Novel 2009 influenza H1N1: Present on admission, did not receive flu shot this year. Fever at presentation, general malaise, shortness of breath and findings of viral pneumonitis with hypoxemia requiring oxygen therapy. Onset within the last 2 days by available history. (3) Viral pneumonitis: Appreciated on imaging (4) Hypertension: Chronically on metoprolol succinate Qualifiers: Hypertension type: essential hypertension Qualified Code(s): I10 - Essential (primary) hypertension (5) History of seizures: Chronically on Keppra (6) Hypothyroidism: Chronically on levothyroxine Qualifiers: Hypothyroidism type: acquired Qualified Code(s): E03.9 - Hypothyroidism, unspecified (7) IBS (irritable bowel syndrome): With constipation, chronically on Linzess Qualifiers: Irritable bowel syndrome type: with both diarrhea and constipation Qualified Code(s): K58.2 - Mixed irritable bowel syndrome (8) BMI 40.0-44.9, adult: There could be a component of obesity hypoventilation contributing to hypoxemia but has not been identified previously that I have found Plan Hyperlipidemia on statin therapy Reflux disease on PPI Osteoarthritis on chronic celecoxib and as needed cyclobenzaprine Daily aspirin therapy History of benign brain tumors Elevated blood sugar without a history of diabetes 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 that was stable on last imaging History of brain tumors, details unknown with impact on memory/cognition THC positive screen Inpatient admission Isolation Oxygen therapy, weaning as able Will initiate Tamiflu given that she is within a couple of days of apparent symptom onset Monitor for worsening respiratory symptoms Check procalcitonin Blood cultures were collected Breathing treatments Continue home metoprolol Continue home Keppra Continue home levothyroxine Hold Linzess currently, we will maintain stool softeners Continue home statin therapy Continue home PPI Continue celecoxib Holding cyclobenzaprine currently secondary to initial alteration in mental status Monitor response to treatment and adjust plan of care accordingly Lovenox for DVT prophylaxis IV fluids with potassium Recheck blood sugars in the morning, check A1c Supportive care otherwise Anticipate discharge home, possibly with oxygen therapy and close outpatient follow-up Findings, concerns and plans were discussed with patient and she was given an opportunity to ask questions. I believe she understands the general idea that influenza is causing her symptoms over the last few days and the worsening of her symptoms today Full code Attestations Medical Necessity Statement*: Anticipated stay greater than 2 midnights in a 56-year-old with comorbidities as noted above presenting with hypoxemia. She has been found to have influenza A H1N1 2009 variant with associated pneumonitis. Without oxygen therapy maintaining saturations in the 80s without a known history of lung disease or hypoxemia previously identified. Such degree of hypoxemia is in indicator of risk of rapid clinical decline. Other issues and plans of care as noted above. Coding Level of Care Code Acute Brick Mason for Yesenia Fwludwin Diagnoses Hypoxia R09.02 Novel 2009 influenza H1N1 J10.1 Viral pneumonitis J12.9 Hypertension I10 Hypertension type: essential hypertension History of seizures Z87.898 Hypothyroidism E03.9 Hypothyroidism type: acquired IBS (irritable bowel syndrome) K58.2 Irritable bowel syndrome type: with both diarrhea and constipation BMI 40.0-44.9, adult Z68.41
[2022-04-22] MEDS: atorvastatin 40 mg Tablet 20 MG PO (21:40)
[2022-04-22] MEDS: enoxaparin 40 mg/0.4 mL Syringe SUBCUT (21:40)
[2022-04-22] MEDS: pantoprazole DR 40 mg Tablet PO (21:40)
[2022-04-22] MEDS: sodium chlor 0.45% +KCl 20 mEq 20 MEQ/1,000 ML BAG 75 MEQ IV (21:50)
[2022-04-23] VITALS (9 sets, daily range): BP systolic 126–144; BP diastolic 67–82; PULSE 78–102; RESP 16–24; TEMP 36.4–36.9; O2SAT 92–97
[2022-04-23 04:23] LABS: Basophils % 0.1 %; Eosinophils # 0.1 10^3/uL (0.0-0.8); Eosinophils % 1.6 %; Hematocrit 43.1 % (37.0-47.0); Hemoglobin 12.8 g/dL (11.5-15.3); Lymphocytes # 1.6 10^3/uL (0.8-4.8); Lymphocytes % 23.5 %; Mean Corpuscular HGB Conc 29.7 g/dL (30.0-36.0); Mean Corpuscular Hemoglobin 27.1 pg (28.0-34.0); Mean Corpuscular Volume 91.3 fl (81-99); Mean Platelet Volume 10.4 fL (7.4-10.4); Monocytes # 0.4 10^3/uL (0.2-0.9); Monocytes % 6.4 %; Neutrophils # 4.66 10^3/uL (1.8-7.7); Neutrophils % 68.1 %; Nucleated Red Blood Cells % 0 %; Platelet Count 231 10^3/cmm (130-400); Red Blood Count 4.72 10^6/uL (4.1-5.3); Red Cell Distribution Width 14.6 % (12.1-15.1); White Blood Count 6.9 10^3/uL (4.0-10.0)
[2022-04-23 04:27] LABS: Estmated Average Glucose 117; Hemoglobin A1C 5.7 % (4.0-6.0)
[2022-04-23 04:41] LABS: Blood Urea Nitrogen 9 mg/dL (6-20); Calcium 8.7 mg/dL (8.5-10.5); Carbon Dioxide 27 mmol/L (22-29); Chloride 104 mmol/L (98-107); Glomerular Filtration Rate 74.5 mL/min (90-130); Glucose 100 mg/dL (65-115); Magnesium 2.1 mg/dL (1.7-2.3); Osmolality Calculated 291 mOsm/kg (285-295); Phosphorus 2.8 mg/dL (2.5-4.5); Sodium 141 mmol/L (136-145)
[2022-04-23 04:42] LABS: Procalcitonin 4.21 ng/mL (0-0.5)
[2022-04-23] MEDS: docusate sodium 100 mg Capsule PO ×2 (09:43→18:42)
[2022-04-23] MEDS: CELEcoxib 100 mg Capsule PO (09:43)
[2022-04-23] MEDS: pantoprazole DR 40 mg Tablet PO ×2 (09:43→20:48)
[2022-04-23] MEDS: aspirin 81 mg EC Tablet PO (09:43)
[2022-04-23] MEDS: levothyroxine 137 mcg Tablet PO (09:43)
[2022-04-23] MEDS: levETIRAcetam 500 mg Tablet PO ×2 (09:43→18:42)
[2022-04-23] MEDS: oseltamivir phosphate 75 mg Capsule PO ×2 (09:43→18:42)
[2022-04-23] MEDS: metoprolol succinate ER (24 HR) 50 mg Tablet PO (09:43)
--- NOTE | 2022-04-23 11:04 | PC.CHAP ---
Pastoral Care Encounter/Spiritual Assessment Type of Contact [] Declined calender let off operator visit [] Patient/Family/Request visit [] Outpatient visit [] Follow-up visit [] Physician referral [] Code/Alert [x] Routine visit [] Staff referral [] Actively dying [] Patient sleeping [] Family support [] [] Out of room [] Palliative care [] [] Receiving care in room [] Pre-surgical visit [] Trauma [] Long length of stay [] ICU visit [] Other: Relational/Emotional Strength [x] Patient feels connected with others/family/visitors/staff [] Distress [] Loneliness/isolation [] Abandonment Spirituality of Patient [x] Person of Jenny [] Attends Yazdanism of their Jenny [x] Believes in Prayer [] Reads Bible or Sabianist materials [] There are Spiritual issues to be addressed Pcas Interventions [x] Prayer [] Active listening [] Non-anxious presence [] Spiritual/emotional support [] Crisis/trauma care [x] Spiritual counseling [] Bereavement support [] Provided bereavement packet [] Provided Bible/devotional materials [] Provided toy/stuffed animal, coloring book to patient or family member [] Provided Communion [] Anointing/[place] [] Salvation x[x] Completed spiritual assessment [] Other: Impact on Illness or Injury [] Angry [] Fearful [] Anxious [] Often cries [] Exhaustion [] Unable to work [] Unable to attend faith [] Unable to walk/stand [] Unable to read [] Unable to drive [] Unable to eat/drink [] Unable to sleep [] Unable to be with family [] Patient intubated [] Other: Summary Time spent with patient 10 min
--- NOTE | 2022-04-23 11:36 | PM.PN ---
Subjective Subjective: Patient is complaining of lethargy, myalgias and fatigue, there is no significant recurrence of blood pressure between 2 arms, blood pressure was retaken by the nurses No active chest pain or shortness of breath No active fever Drug screen positive History of brain tumor/benign Vitals/I&O/Wt Last Vital Signs Temp 98.1 F 04/23/22 11:16 Pulse 98 04/23/22 11:16 Resp 18 04/23/22 11:16 BP 126/71 04/23/22 11:16 Pulse Ox 93 04/23/22 11:16 O2 Del Method 04/23/22 11:16 O2 Flow Rate 2 04/23/22 08:14 04/22/22 04/23/22 04/23/22 22:59 06:59 14:59 Intake Total 1120 / 1120 240 / 240 Balance 1120 / 1120 240 / 240 Weight last 48 hrs Weight 96.814 kg Physical Exam Narrative: Patient is laying supine Currently on 2 L EOMI, PERRLA S1, S2 Looks euvolemic No active chest pain Hemodynamically stable No signs of stroke Looks euvolemic Data 04/23/22 03:58 04/23/22 03:58 Micro: Microbiology 04/22/22 08:55 Blood Culture - Preliminary Blood NEGATIVE TO DATE 04/22/22 08:51 Blood Culture - Preliminary Blood NEGATIVE TO DATE A&P Assessment and plan (1) History of seizures: (2) GERD (gastroesophageal reflux disease): Qualifiers: Esophagitis presence: without esophagitis Qualified Code(s): K21.9 - Gastro-esophageal reflux disease without esophagitis (3) Chronic arthritis: (4) Mass of pancreas: (5) IBS (irritable bowel syndrome): Qualifiers: Irritable bowel syndrome type: with both diarrhea and constipation Qualified Code(s): K58.2 - Mixed irritable bowel syndrome (6) Hypoxia: (7) Novel 2009 influenza H1N1: Plan Influenza type a positive High procalcitonin Concern for bacterial possible pneumonia We will add steroids because of her active wheezing along antibiotics Check MRSA PCR History of benign brain tumor, seizures no active acute exacerbation Continue levothyroxine Blood pressure is stable no signs of aortic dissection no active chest pain Drug screen positive for marijuana Full code CTA did not show PE Attestations Medical Necessity Statement*: Anticipating discharge within 40 hours Time Spent in Patient Care: 40 Coding Level of Care Code Acute [employer] Mdm Architect for Chg Fwd Diagnoses History of seizures Z87.898 GERD (gastroesophageal reflux disease) K21.9 Esophagitis presence: without esophagitis Chronic arthritis M19.90 Mass of pancreas K86.89 IBS (irritable bowel syndrome) K58.2 Irritable bowel syndrome type: with both diarrhea and constipation Hypoxia R09.02 Novel 2009 influenza H1N1 J10.1
--- NOTE | 2022-04-23 16:43 | PC.NURSE ---
Notified Dr. Calvin manual PB on right was 82/50 and lef upper arm manual is 132/82. Repeat BP this afternoon, right upper arm is 117/53 and left upper arm is 92/63 and left forearm is 81/54. Pulse on left and right is 86.
[2022-04-23] MEDS: atorvastatin 40 mg Tablet 20 MG PO (20:49)
[2022-04-23] MEDS: enoxaparin 40 mg/0.4 mL Syringe SUBCUT (20:49)
[2022-04-24] VITALS (7 sets, daily range): BP systolic 125–145; BP diastolic 69–73; PULSE 74–90; RESP 16–18; TEMP 36.3–36.7; O2SAT 92–97
[2022-04-24] MEDS: levoFLOXacin 750 mg Tablet PO (05:51)
[2022-04-24] MEDS: aspirin 81 mg EC Tablet PO (10:17)
[2022-04-24] MEDS: levETIRAcetam 500 mg Tablet PO (10:17)
[2022-04-24] MEDS: metoprolol succinate ER (24 HR) 50 mg Tablet PO (10:17)
[2022-04-24] MEDS: levothyroxine 137 mcg Tablet PO (10:17)
[2022-04-24] MEDS: CELEcoxib 100 mg Capsule PO (10:18)
[2022-04-24] MEDS: pantoprazole DR 40 mg Tablet PO (10:18)
[2022-04-24] MEDS: docusate sodium 100 mg Capsule PO (10:18)
[2022-04-24] MEDS: oseltamivir phosphate 75 mg Capsule PO (10:18)
--- NOTE | 2022-04-24 11:13 | P.DS_ITS ---
Discharge Providers Date of Admission: 04/22/22 15:20 Date of Discharge: April 24, 2022 Attending Provider at Admission: Rupal Cisneros MD Attending Provider at Discharge: Isrrael Álvarez MD Primary Care Provider: Maliha Stein MD Diagnoses at Discharge Discharge Diagnosis (1) History of seizures: Status: Chronic (2) GERD (gastroesophageal reflux disease): Status: Chronic Qualifiers: Esophagitis presence: without esophagitis Qualified Code(s): K21.9 - Gastro-esophageal reflux disease without esophagitis (3) Chronic arthritis: Status: Chronic (4) Mass of pancreas: Status: Acute Permanent problem details: 2.5x 2.8 cm, body of pancreas, suspicious for mucinous cystic neoplasm, stable size on last imaging (5) IBS (irritable bowel syndrome): Status: Chronic Qualifiers: Irritable bowel syndrome type: with both diarrhea and constipation Qualified Code(s): K58.2 - Mixed irritable bowel syndrome (6) Hypoxia: Status: Acute (7) Novel 2008 influenza H1N1: Status: Acute Reason for Visit Reason for Visit: AMS Hospital Course Hospital Course 56-year female who was admitted in the hospital for acute hypoxia related to influenza A with concern for postviral bacterial pneumonia. Cultures remain negative, her procalcitonin was high, she remained afebrile. She required 2 L of oxygen during hospitalization however home O2 evaluation was completed she never dropped below 96% on room air, she did not qualify for oxygen. She will finish Levaquin and Tamiflu regimen. I have given albuterol for as needed use. CT rule out PE. Her confusion improved which could be related to influenza A, head CT unremarkable. Physical Exam Narrative: Awake and alert Patient is able to walk Myalgia improved Doing well on room air S1, S2 Abdomen soft She went to the bathroom on her own No signs of confusion Discharge Data Studies Completed and Pending Completed Studies During Hospitalization Category Date Time Status CT angio chest PE protcl [id number] Stat Cat Scan 04/22/22 10:[address] head wo con* [id number] Stat Cat Scan 04/22/22 10:08 Completed XR chest 1V portable [id number] Stat Exams 04/22/22 08:24 Completed Pending at discharge Category Date Time Status Blood Culture Stat Lab 04/22/22 08:55 Results MRSA by PCR Routine Lab 04/23/22 13:03 Received Urine Culture Stat Lab 04/22/22 10:45 Received Radiology Impressions Chest X-Ray 04/22/22 08:24 IMPRESSION: Unremarkable portable chest. Head CT 04/22/22 10:08 IMPRESSION: 1. No evidence of intracranial hemorrhage or mass effect. 2. Mild small vessel changes with moderate parenchymal volume loss. 3. Small meningioma overlying the inferior frontal lobe along the superior orbital rim measuring 1.1 x 0.8 x 1.4 cm likely small meningioma. This is better visualized but appears stable since 2019. 4. No other suspicious findings. Chest CTA 04/22/22 10:39 IMPRESSION: 1. No evidence of pulmonary embolus. 2. Shallow inspiration with slight hazy groundglass infiltrates can be seen with edema or slight viral pneumonitis. 3. Cardiomegaly. 4. No other acute findings. Laboratory Results WBC 6.9 10^3/uL (4.0-10.0) 04/23/22 03:58 RBC 4.72 10^6/uL (4.1-5.3) 04/23/22 03:58 Hgb 12.8 g/dL (11.5-15.3) 04/23/22 03:58 Hct 43.1 % (37.0-47.0) 04/23/22 03:58 MCV 91.3 fl (81-99) 04/23/22 03:58 MCH 27.1 pg (28.0-34.0) L 04/23/22 03:58 MCHC 29.7 g/dL (30.0-36.0) L 04/23/22 03:58 RDW 14.6 % (12.1-15.1) 04/23/22 03:58 Plt Count 231 10^3/cmm (130-400) 04/23/22 03:58 MPV 10.4 fL (7.4-10.4) 04/23/22 03:58 Neut % (Auto) 68.1 % 04/23/22 03:58 Lymph % (Auto) 23.5 % 04/23/22 03:58 [place] % (Auto) 6.4 % 04/23/22 03:58 Eos % (Auto) 1.6 % 04/23/22 03:58 Baso % (Auto) 0.1 % 04/23/22 03:58 Neut # (Auto) 4.66 10^3/uL (1.8-7.7) 04/23/22 03:58 Lymph # (Auto) 1.6 10^3/uL (0.8-4.8) 04/23/22 03:58 [place] # (Auto) 0.4 10^3/uL (0.2-0.9) 04/23/22 03:58 Eos # (Auto) 0.1 10^3/uL (0.0-0.8) 04/23/22 03:58 Baso # (Auto) 0.0 10^3/uL (0.0-0.1) 04/23/22 03:58 Nucleated RBC % (auto) 0 % 04/23/22 03:58 Nucleated RBCs # 0.0 /100WBC 04/23/22 03:58 Specimen Type Arterial 04/22/22 09:29 Sample Site Radial, right 04/22/22 09:29 ABG pH 7.38 (7.35-7.45) 04/22/22 09:29 ABG pCO2 41.2 mmHg (35-45) 04/22/22 09:29 ABG pO2 80.1 mmHg (80.0-100.0) 04/22/22 09:29 ABG HCO3 24.2 mmol/L (22-26) 04/22/22 09:29 ABG O2 Saturation 96.2 04/22/22 09:29 ABG Base Excess -1.0 mmol/L (-2.0-2.0) 04/22/22 09:29 Yang Test Pos 04/22/22 09:29 A-a O2 Gradient 12.7 mmHg (5-10) H 04/22/22 09:29 Hematocrit 38.4 % (37-47) 04/22/22 09:29 Hgb O2 Saturation 94.9 % (95-100) L 04/22/22 09:29 Carboxyhemoglobin 1.0 %THgb (0.4-20.1) 04/22/22 09:29 Methemoglobin 0.4 % (0.4-1.5) 04/22/22 09:29 Total Hemoglobin 12.5 g/dL (12-16) 04/22/22 09:29 Sodium 139.0 mmol/L (131-143) 04/22/22 09:29 Potassium 3.3 mmol/L (3.5-5.0) L 04/22/22 09:29 Glucose 108.0 mg/dL (70-115) 04/22/22 09:29 Ionized Calcium 1.1 mmol/L (1.1-1.4) 04/22/22 09:29 O2 Delivery Device Nc 04/22/22 09:29 FiO2 32.0 % 04/22/22 09:29 Order Department Supervisor ID [email or web address] 04/22/22 09:29 Sodium 141 mmol/L (136-145) 04/23/22 03:58 Potassium 4.0 mmol/L (3.5-5.1) 04/23/22 03:58 Chloride 104 mmol/L (98-107) 04/23/22 03:58 Carbon Dioxide 27 mmol/L (22-29) 04/23/22 03:58 Anion Gap 14.0 (5-19) 04/23/22 03:58 BUN 9 mg/dL (6-20) 04/23/22 03:58 Creatinine 0.8 mg/dL (0.5-0.9) 04/23/22 03:58 GFR Calculation 74.5 mL/min (90-130) L 04/23/22 03:58 Glucose 100 mg/dL (65-115) 04/23/22 03:58 Estimat Average Glucose 117 04/23/22 03:58 Hemoglobin A1c 5.7 % (4.0-6.0) 04/23/22 03:58 Calculated Osmolality 291 mOsm/kg (285-295) 04/23/22 03:58 Lactic Acid 1.3 mmol/L (0.5-2.2) 04/22/22 08:51 Calcium 8.7 mg/dL (8.5-10.5) 04/23/22 03:58 Phosphorus 2.8 mg/dL (2.5-4.5) 04/23/22 03:58 Magnesium 2.1 mg/dL (1.7-2.3) 04/23/22 03:58 Total Bilirubin 0.4 mg/dL (0.15-1.2) 04/22/22 07:17 AST 25 U/L (0-32) 04/22/22 07:17 ALT 12 U/L (0-33) 04/22/22 07:17 Alkaline Phosphatase 144 U/L (35-105) H 04/22/22 07:17 Ammonia 25 umol/L (11-51) 04/22/22 11:41 Creatine Kinase 94 U/L (26-192) 04/22/22 07:17 Troponin T Baseline 46 ng/L (0-10) H 04/22/22 07:17 Troponin T 120 Minute 51.04 ng/L (0-10) H 04/22/22 11:55 Delta Troponin T 5.04 ABS# (0-10) 04/22/22 11:55 Troponin T Hi Sens 6Hr 39.61 ng/L (0-10) H 04/22/22 15:22 Troponin T Hi Sens 6Hr Delta -6.39 ng/L (0-12) L 04/22/22 15:22 Total Protein 7.8 g/dL (6.6-8.7) 04/22/22 07:17 Albumin 4.0 g/dL (3.5-5.2) 04/22/22 07:17 Globulin 3.8 g/dL (1.3-4.6) 04/22/22 07:17 Lipase 26 U/L (13-60) 04/22/22 07:17 Procalcitonin 4.21 ng/mL (0-0.5) H 04/23/22 03:58 Urine Color Yellow (Yellow) 04/22/22 10:45 Urine Appearance Clear (CLEAR) 04/22/22 10:45 Urine pH 5 (5-7) 04/22/22 10:45 Ur Specific [place] 1.025 (1.005-1.030) 04/22/22 10:45 Urine Protein 1+ (Negative) H 04/22/22 10:45 Urine Glucose (UA) Norm (Normal) 04/22/22 10:45 Urine Ketones 1+ (Negative) H 04/22/22 10:45 Urine Blood 3+ (Negative) H 04/22/22 10:45 Urine Nitrate Negative (Negative) 04/22/22 10:45 Urine Bilirubin Neg (Negative) 04/22/22 10:45 Urine Urobilinogen 1 mg/dL (Negative) H 04/22/22 10:45 Ur Leukocyte Esterase Negative (Negative) 04/22/22 10:45 Urine RBC 0-4 /hpf (0-2) H 04/22/22 10:45 Urine WBC None /hpf (0-5) 04/22/22 10:45 Ur Squamous Epith Cells 5-10 /hpf (0-5) H 04/22/22 10:45 Amorphous Sediment Not Reportable 04/22/22 10:45 Urine Bacteria 4+ /hpf (NONE) H 04/22/22 10:45 Nasal Influ A H1 2009 PCR Detected (NOT DETECT) A 04/22/22 10:46 Salicylates < 0.3 mg/dL (3-10) L 04/22/22 07:17 Urine Opiates Screen Negative ng/mL (Negative) 04/22/22 10:45 Acetaminophen < 5.0 ug/mL (10-30) L 04/22/22 07:17 Ur Barbiturates Screen Negative ng/mL (Negative) 04/22/22 10:45 Ur Phencyclidine Scrn Negative ng/mL (Negative) 04/22/22 10:45 Ur Amphetamines Screen Negative ng/mL (Negative) 04/22/22 10:45 U Benzodiazepines Scrn Negative ng/mL (Negative) 04/22/22 10:45 Urine Cocaine Screen Negative ng/mL (Negative) 04/22/22 10:45 U Marijuana (THC) Screen Positive ng/mL (Negative) H 04/22/22 10:45 Ethyl Alcohol < 10 mg/dL (0-10) 04/22/22 07:17 Coronavirus 229E (PCR) Not detected (NOT DETECT) 04/22/22 08:45 Influenza A (H1) PCR Not detected (NOT DETECT) 04/22/22 10:46 Influenza A (H3) PCR Not detected (NOT DETECT) 04/22/22 10:46 Influenza Type A Ag Negative (Negative) 04/22/22 08:45 Influenza Type A (PCR) Detected (NOT DETECT) A 04/22/22 10:46 Influenza Type B Ag Negative (Negative) 04/22/22 08:45 Influenza Type B (PCR) Not detected (NOT DETECT) 04/22/22 10:46 RSV Antigen Negative (Negative) 04/22/22 12:30 SARS-CoV-2 (PCR) Not detected (NOT DETECT) 04/22/22 08:45 Vitals Last Vital Signs Temp 98.1 F 04/24/22 07:19 Pulse 77 04/24/22 08:00 Resp 16 04/24/22 08:00 BP 145/69 04/24/22 07:19 Pulse Ox 97 04/24/22 09:58 O2 Del Method 04/24/22 07:58 O2 Flow Rate 2 04/24/22 07:58 Discharge Plan Discharge Patient Disposition: Home Condition: Stable Prescriptions: New oseltamivir 75 mg Capsule 75 mg PO BID Qty: 6 0RF levofloxacin 750 mg Tablet 750 mg PO DAILY@0600 Qty: 5 0RF albuterol sulfate 90 mcg/actuation HFA aerosol inhaler 2 inh inhalation Q8H PRN (Reason: shortness of breath or wheezing) Qty: 8.5 1RF Continued aspirin 81 mg tablet,delayed release (DR/EC) 81 mg PO DAILY 90 Days Qty: 90 3RF Rx Instructions: with food linaclotide 145 mcg capsule 145 mcg PO QAM 30 Days Qty: 30 5RF pantoprazole [Protonix] 40 mg tablet,delayed release (DR/EC) 40 mg PO Q12H 90 Days Qty: 180 1RF metoprolol succinate 50 mg tablet extended release 24 hr 50 mg PO DAILY 90 Days Qty: 90 1RF levothyroxine 137 mcg tablet 137 mcg PO DAILY 90 Days Qty: 90 1RF levetiracetam 500 mg tablet 500 mg PO BID 90 Days Qty: 180 1RF cyclobenzaprine 5 mg tablet 10 mg PO TID MDD 6 tabs PRN (Reason: muscle spasm) Qty: 60 2RF Rx Instructions: 1 or 2 tabs as needed simvastatin 20 mg tablet 20 mg PO BEDTIME Discontinued celecoxib 100 mg capsule 100 mg PO DAILY 90 Days Qty: 90 1RF Rx Instructions: WITH FOOD Discharge Orders: Discharge Order (Routine); Ordered 04/24/22 Ordered By: Isrrael Álvarez Referrals: Maliha Stein MD [Primary Care Provider] - 05/02/22 11:30 am Discharge Diet: Cardiac Discharge Activity: Increase activity as tolerated Patient Instructions: Albuterol (By breathing), Levofloxacin (By mouth), Oseltamivir (By mouth), Influenza (GEN), Pneumonia (GEN), Opioid Safety Discharge Attestations Time Spent in Discharge Care*: less than 30 min Quality Metrics Clinical Quality Measures [ No reported AMI, CVA or VTE this stay] Coding Level of Care Code Acute Chg FW DC note Diagnoses History of seizures Z87.898 GERD (gastroesophageal reflux disease) K21.9 Esophagitis presence: without esophagitis Chronic arthritis M19.90 Mass of pancreas K86.89 IBS (irritable bowel syndrome) K58.2 Irritable bowel syndrome type: with both diarrhea and constipation Hypoxia R09.02 Novel 2009 influenza H1N1 J10.1
--- NOTE | 2022-04-24 12:28 | PC.NURSE ---
Discussed discharge follow up appointments, new medications, continued medications and stopped medications with patient. Verbalized understanding.
== END 2022-04-24 12:50 | disposition home or self-care (01) | DRG 194 ==
LOC: ER 14:39 → MEDSURG 15:20
PROVIDERS: Admitting Provider Hospitalist; Emergency Provider Family Medicine; PCP Family Medicine; Visit Provider Internal Medicine
DX: J10.00 Influenza due to other identified influenza virus with unspecified type of pneumonia (principal); Z68.41 Body mass index [BMI] 40.0-44.9, adult; K21.9 Gastro-esophageal reflux disease without esophagitis; M19.90 Unspecified osteoarthritis, unspecified site; K86.9 Disease of pancreas, unspecified; K58.2 Mixed irritable bowel syndrome; Z79.82 Long term (current) use of aspirin; I10 Essential (primary) hypertension; E03.9 Hypothyroidism, unspecified; R56.9 Unspecified convulsions; E66.9 Obesity, unspecified; E78.5 Hyperlipidemia, unspecified; J15.9 Unspecified bacterial pneumonia
CPT/HCPCS: 36415; 36600; 70450; 71045; 71275; 80048; 80051; 80053; 80306; 80307; 81001; 82140; 82330; 82550; 82805; 83036; 83605; 83690; 83735; 84100; 84145; 84484; 85025; 87040; 87086; 87420; 87631; 87635; 87641; 87804; 93005; 94760; 96360; 96372; 99285; J1650; J2930; J3480; J7030; Q9967

== ENCOUNTER → 2022-05-02 09:48 | Outpatient (BNVA) | payer MEDICAID, SELFPAY | PROVIDERS: PCP Family Medicine; Visit Provider Family Medicine | DX: Z09 Encounter for follow-up examination after completed treatment for conditions other than malignant neoplasm (principal); J18.9 Pneumonia, unspecified organism; J10.00 Influenza due to other identified influenza virus with unspecified type of pneumonia | CPT/HCPCS: 71046 ==

== ENCOUNTER → 2022-09-12 08:33 | Outpatient (BNVA) | payer MEDICAID, SELFPAY | PROVIDERS: PCP Family Medicine; Visit Provider Family Medicine | DX: M17.0 Bilateral primary osteoarthritis of knee (principal) | CPT/HCPCS: 73562 ==

== ENCOUNTER 2022-09-25 08:13 | Outpatient (CLI) | payer MEDICAID, SELFPAY ==
--- NOTE | 2022-09-25 08:20 | MM_ITS ---
WS: [id number] VIEWS: MLO and CC views both breasts. 3D digital tomosynthesis is also included in this exam. Comparison made with prior exam of 02/17/2017, 06/14/2021.. Findings: Stable appearing nodular densities in both breasts. No architectural distortion or suspicious calcifi cation in either breast. Scattered areas of fibroglandular density MM/[place] [id number] Impression: BI-RADS: 2 Benign finding FOLLOW-UP: 1 Year Follow-up This mammogram was also analyzed by the Computer Aided Detection System R2 Imag e [employer] Engineer.
== END 2022-09-25 08:14 | disposition home or self-care (01) ==
PROVIDERS: PCP Family Medicine; Visit Provider Family Medicine
DX: Z12.31 Encounter for screening mammogram for malignant neoplasm of breast (principal); E03.9 Hypothyroidism, unspecified; I10 Essential (primary) hypertension
CPT/HCPCS: 77063; 77067; 80053; 84443

== ENCOUNTER 2022-11-27 23:22 | Emergency (ER) | payer MEDICAID, SELFPAY ==
[2022-11-27 23:51] LABS: Basophils # 0.1 10^3/uL (0.0-0.1); Basophils % 0.5 %; Eosinophils # 0.4 10^3/uL (0.0-0.8); Eosinophils % 3.6 %; Hematocrit 40.5 % (37.0-47.0); Hemoglobin 12.5 g/dL (11.5-15.3); Lymphocytes % 18.2 %; Mean Corpuscular HGB Conc 30.9 g/dL (30.0-36.0); Mean Corpuscular Hemoglobin 27.5 pg (28.0-34.0); Mean Platelet Volume 9.9 fL (7.4-10.4); Monocytes # 0.5 10^3/uL (0.2-0.9); Neutrophils # 7.84 10^3/uL (1.8-7.7); Neutrophils % 72.1 %; Nucleated Red Blood Cells % 0 %; Platelet Count 246 10^3/cmm (130-400); Red Blood Count 4.55 10^6/uL (4.1-5.3); Red Cell Distribution Width 14.7 % (12.1-15.1); White Blood Count 10.9 10^3/uL (4.0-10.0)
[2022-11-28 00:13] LABS: Alanine Aminotransferase 10 U/L (0-33); Alkaline Phosphatase 137 U/L (35-105); Aspartate Amino Transferase 11 U/L (0-32); Blood Urea Nitrogen 16 mg/dL (6-20); Calcium 9.6 mg/dL (8.5-10.5); Carbon Dioxide 29 mmol/L (22-29); Chloride 104 mmol/L (98-107); Globulin 2.9 g/dL (1.3-4.6); Glomerular Filtration Rate 64.8 mL/min (90-130); Glucose 122 mg/dL (65-115); Lipase 51 U/L (13-60); Osmolality Calculated 296 mOsm/kg (285-295); Sodium 142 mmol/L (136-145); Total Bilirubin 0.2 mg/dL (0.15-1.2); Total Protein 6.9 g/dL (6.6-8.7)
[2022-11-28 00:32] VITALS: BP 136/66; PULSE 101; RESP 18; TEMP 36.7; O2SAT 96; BMI 41.1
--- NOTE | 2022-11-28 01:23 | XRR_ITS ---
PROCEDURE INFORMATION: Exam: XR Chest Exam date and time: 11/28/2022 1:29 AM Age: 57 years old Clinical indication: Pain; Angina pectoris; Additional info: Cp TECHNIQUE: Imaging protocol: Radiologic exam of the chest. Views: 1 view. COMPARISON: CR XR chest 2V* [id number] 05/02/2022 9:56 AM FINDINGS: Lungs: Unremarkable. No consolidation. Pleural spaces: Unremarkable. No pleural effusion. No pneumothorax. Heart/Mediastinum: Unremarkable. No cardiomegaly. Bones/joints: Unremarkable. XR/XR chest 1V portable [id number] IMPRESSION: No acute findings.
[2022-11-28 01:25] VITALS: BP 159/71; PULSE 98; RESP 16; O2SAT 90
--- NOTE | 2022-11-28 01:25 | ED_ITS ---
HPI - Female Genitourinary General: Chief complaint: Urogenital-Female Stated complaint: flank pain Time Seen by Provider: 11/28/22 00:52 Source: patient and EMS Mode of arrival: EMS Limitations: no limitations History of Present Illness: 57-year-old female states that she started having some right back and right- sided chest pain 3 to 4 hours ago. States very sharp in nature worse with movement worse with palpation she denies any abdominal pain denies any shortness of breath denies any fever dysuria. She had no vomiting or diarrhea Associated symptoms: Deny abdominal pain, headache(s) or nausea Review of Systems Const: Denies: fever(s) or chills Eyes: Denies: eye discomfort ENMT: Denies: throat pain or dental pain Card: Denies: chest pain Resp: Denies: dyspnea GI: Denies: abdominal pain, nausea, vomiting or diarrhea : Denies: dysuria Musc: Reports: back pain; Denies: neck pain Skin/Breast: Denies: rash Neuro: Denies: headache(s) PFSH ED PFSH: Medical History Bilateral renal cysts BMI 40.0-44.9, adult Chronic arthritis Cleft palate Constipation Food impaction of esophagus Recurrent GERD (gastroesophageal reflux disease) History of brain tumor Reports benign, impacted memory History of seizures Hypertension Hypothyroidism Hypoxia IBS (irritable bowel syndrome) 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 2.8 cm, body of pancreas, suspicious for mucinous cystic neoplasm, stable size on last imaging Novel 2008 influenza H1N1 Viral pneumonitis Surgical History History of esophagogastroduodenoscopy (EGD) 10/17/21 for esophageal food impaction, no abnormalities otherwise noted Family History Other Family history unknown Social History Smoking and tobacco status: never smoked Alcohol intake: never Substance/Drug Use: current Other substance/drug use details: Patient denies drug use Household members: significant other Female Reproductive History: Spontaneous abortions: No Physical Exam Const: COMMON NORMALS: no acute distress, patient oriented x3 and healthy appearing HENMT: COMMON NORMALS: normocephalic and atraumatic HEAD & SCALP: normocephalic and atraumatic Neck/C-Spine: COMMON NORMALS: full ROM and supple Chest: COMMONS NORMALS: normal inspection of the chest OTHER: Point tender right side chest wall reproduces her pain Resp: COMMON NORMALS: normal respiratory effort, No retractions, No use of accessory muscles and clear to auscultation bilaterally AUSCULTATION: clear to auscultation bilaterally Cardio: COMMON NORMALS: regular rate, regular rhythm and No murmurs present (C ardio) RATE: regular rate RHYTHM: regular rhythm GI: COMMON NORMALS: Normal to inspection, nondistended, normoactive bowel sounds present, Soft to palpation, non-tender and no masses PALPATION: Yes Soft to palpation Extremity: COMMON NORMALS: normal to inspection and full ROM Neuro: COMMON NORMALS: patient oriented x3, moves all extremities and no focal motor deficits Psych: COMMON NORMALS: mental status grossly normal, Normal thought process present and cooperative THOUGHT PROCESS: Normal thought process present Skin: COMMON NORMALS: no rashes or lesions noted and no wounds GENERAL SKIN EXAM: no rashes or lesions noted Course Vital Signs: Vital signs: Vital Signs Temperature 98.1 F 11/28/22 00:32 Pulse Rate 92 11/28/22 03:43 Respiratory Rate 16 11/28/22 03:43 Blood Pressure 127/57 11/28/22 03:43 Pulse Oximetry 94 11/28/22 03:43 Oxygen Delivery Me thod Room Air 11/28/22 00:32 MDM - Female Medical Decision Making Patient presents here with right-sided chest wall pain is muscular in nature likely she is point tender blood work here is normal she does have a UTI will treat her with Naprosyn and antibiotics she has no signs of acute coronary syndrome. Medical Records I reviewed the patient's medical records. Lab Data I reviewed the patient's lab results. 11/27/22 23:43 11/27/22 23:43 Radiology Impressions Chest X-Ray 11/28/22 01:23 IMPRESSION: No acute findings. Laboratory Results WBC 10.9 10^3/uL (4.0-10.0) H 11/27/22 23:43 RBC 4.55 10^6/uL (4.1-5.3) 11/27/22 23:43 Hgb 12.5 g/dL (11.5-15.3) 11/27/22 23:43 Hct 40.5 % (37.0-47.0) 11/27/22: MCV 89.0 fl (81-99) 11/27/22 23:43 MCH 27.5 pg (28.0-34.0) L 11/27/22 23: MCHC 30.9 g/dL (30.0-36.0) 11/27/22: RDW 14.7 % (12.1-15.1) 11/27/22 23:43 Plt Count 246 10^3/cmm (130-400) 11/27/22 23: MPV 9.9 fL (7.4-10.4) 11/27/22 23:43 Neut % (Auto) 72.1 % 11/27/22 23:43 Lymph % (Auto) 18.2 % 11/27/22 23: [place] % (Auto) 5.0 % 11/27/22 23: Eos % (Auto) 3.6 % 11/27/22 23:43 Baso % (Auto) 0.5 % 11/27/22: Neut # (Auto) 7.84 10^3/uL (1.8-7.7) H 11/27/22: Lymph # (Auto) 2.0 10^3/uL (0.8-4.8) 11/27/22 23:43 [place] # (Auto) 0.5 10^3/uL (0.2-0.9) 11/27/22 23:43 Eos # (Auto) 0.4 10^3/uL (0.0-0.8) 11/27/22 23:43 Baso # (Auto) 0.1 10^3/uL (0.0-0.1) 11/27/22: Nucleated RBC % (auto) 0 % 11/27/22: Nucleated RBCs # 0.0 /100WBC 11/27/22 23:43 Sodium 142 mmol/L (136-145) 11/27/22 23: Potassium 4.0 mmol/L (3.5-5.1) 11/27/22 23: Chloride 104 mmol/L (98-107) 11/27/22 23:43 Carbon Dioxide 29 mmol/L (22-29) 11/27/22 23:43 Anion Gap 13.0 (5-19) 11/27/22 23:43 BUN 16 mg/dL (6-20) 11/27/22 23:43 Creatinine 0.9 mg/dL (0.5-0.9) 11/27/22 23:43 GFR Calculation 64.8 mL/min (90-130) L 11/27/22 23:43 Glucose 122 mg/dL (65-115) H 11/27/22 23:43 Calculated Osmolality 296 mOsm/kg (285-295) H 11/27/22 23:43 Calcium 9.6 mg/dL (8.5-10.5) 11/27/22 23:43 Total Bilirubin 0.2 mg/dL (0.15-1.2) 11/27/22 23:43 AST 11 U/L (0-32) 11/27/22 23:43 ALT 10 U/L (0-33) 11/27/22 23:43 Alkaline Phosphatase 137 U/L (35-105) H 11/27/22 23:43 Total Protein 6.9 g/dL (6.6-8.7) 11/27/22 23:43 Albumin 4.0 g/dL (3.5-5.2) 11/27/22 23:43 Globulin 2.9 g/dL (1.3-4.6) 11/27/22 23:43 Lipase 51 U/L (13-60) 11/27/22 23:43 Urine Color Light yellow (Yellow) 11/28/22 02:50 Urine Appearance Hazy (CLEAR) A 11/28/22 02:50 Urine pH 5 (5-7) 11/28/22 02:50 Ur Specific [place] 1.015 (1.005-1.030) 11/28/22 02:50 Urine Protein Neg (Negative) 11/28/22 02:50 Urine Glucose (UA) Norm (Normal) 11/28/22 02:50 Urine Ketones Negative (Negative) 11/28/22 02:50 Urine Blood Neg (Negative) 11/28/22 02:50 Urine Nitrate Negative (Negative) 11/28/22 02:50 Urine Bilirubin Neg (Negative) 11/28/22 02:50 Urine Urobilinogen Norm mg/dL (Negative) 11/28/22 02:50 Ur Leukocyte Esterase 2+ (Negative) H 11/28/22 02:50 Urine RBC 0-4 /hpf (0-2) H 11/28/22 02:50 Urine WBC 55-80 /hpf (0-5) H 11/28/22 02:50 Ur Squamous Epith Cells 15-25 /hpf (0-5) H 11/28/22 02:50 Amorphous Sediment Not Reportable 11/28/22 02:50 Urine Bacteria 1+ /hpf (NONE) H 11/28/22 02:50 Discharge Plan Discharge Patient Disposition: Home Clinical Impression: Chest wall pain, Acute cystitis Condition: Stable Prescriptions: New cephalexin 500 mg capsule 500 mg PO TID 7 Days Qty: 21 0RF Naprosyn 500 mg tablet 500 mg PO BID PRN (Reason: pain) Qty: 20 0RF No Action cyclobenzaprine 5 mg tablet See Rx Instructions .ROUTE .COMPLEX Qty: 60 5RF Dose Instruction: TAKE 1 OR 2 TABLETS BY MOUTH 3 TIMES A DAY NEEDED FOR MUSCLE SPASM MAX 6 TABLETS PER DAY Rx Instructions: TAKE 1 OR 2 TABLETS BY MOUTH 3 TIMES A DAY NEEDED FOR MUSCLE SPASM MAX 6 TABLETS PER DAY linaclotide 145 mcg capsule 145 mcg PO QAM 30 Days Qty: 30 5RF metoprolol succinate 50 mg tablet extended release 24 hr 50 mg PO DAILY 90 Days Qty: 90 1RF pantoprazole [Protonix] 40 mg tablet,delayed release (DR/EC) 40 mg PO Q12H 90 Days Qty: 180 1RF albuterol sulfate 90 mcg/actuation HFA aerosol inhaler 2 inh inhalation Q8H PRN (Reason: shortness of breath or wheezing) Qty: 8.5 1RF levetiracetam 500 mg tablet 500 mg PO BID 90 Days Qty: 180 1RF levothyroxine 150 mcg tablet 150 mcg PO DAILY 90 Days Qty: 90 0RF albuterol sulfate 2.5 mg /3 mL (0.083 %) solution for nebulization See Rx Instructions .ROUTE .COMPLEX Qty: 180 0RF Dose Instruction: 2.5 MG (3 ML) INHALED EVERY 4 HOURS NEEDED FOR SHORTNESS OF BREATH OR WHEEZING Rx Instructions: 2.5 MG (3 ML) INHALED EVERY 4 HOURS NEEDED FOR SHORTNESS OF BREATH OR WHEEZING aspirin 81 mg tablet,delayed release (DR/EC) See Rx Instructions .ROUTE .COMPLEX Qty: 90 0RF Dose Instruction: TAKE ONE TABLET BY MOUTH DAILY WITH FOOD Rx Instructions: TAKE ONE TABLET BY MOUTH DAILY WITH FOOD simvastatin 20 mg tablet 20 mg PO BEDTIME Discharge Orders: Discharge ED (Routine); Ordered 11/28/22 Ordered By: Ryan Cartagena Referrals: Maliha Stein MD [Primary Care Provider] - 1-3 days Discharge Diet: Advance as tolerated Discharge Activity: Resume usual activity Patient Instructions: Urinary Tract Infection in Women (ED), Chest Wall Pain (ED) Coding Level of Care Code ED Street Photographer for Yesenia Connors
[2022-11-28] MEDS: sodium chloride 0.9% 1,000 ML 999 ML IV (01:32)
[2022-11-28 03:24] LABS: Add Urine Microscopic? YES; Bilirubin Urine Neg (Negative); Blood Urine Neg (Negative); Glucose Urine UA Norm (Normal); Ketones Urine Negative (Negative); Leukocyte Esterase Urine 2+ (Negative); Nitrate Urine Negative (Negative); Protein Urine Neg (Negative); RBC Urine 0-4 /hpf (0-2); Specific Gravity, Urine 1.015 (1.005-1.030); Squamous Epithelial Cell Urine 15-25 /hpf (0-5); Urine Appearance Hazy (CLEAR); Urine Color Light yellow (Yellow); Urobilinogen Urine Norm (Negative); WBC Urine 55-80 /hpf (0-5); pH Urine 5 (5-7)
[2022-11-28 03:25] LABS: Add Urine Culture? No; Bacteria Urine 1+ /hpf
[2022-11-28 03:43] VITALS: BP 127/57; PULSE 92; RESP 16; O2SAT 94
[2022-11-28] MEDS: cephALEXin 500 mg Capsule PO (03:44)
== END 2022-11-28 03:50 | disposition home or self-care (01) ==
PROVIDERS: Emergency Provider Emergency Medicine; PCP Family Medicine
DX: R07.89 Other chest pain (principal); N30.90 Cystitis, unspecified without hematuria; I10 Essential (primary) hypertension; E03.9 Hypothyroidism, unspecified; Z79.899 Other long term (current) drug therapy; Z79.82 Long term (current) use of aspirin
CPT/HCPCS: 36415; 71045; 80053; 81001; 83690; 85025; 96360; 96361; 99284; J7030

== ENCOUNTER → 2023-01-20 10:17 | Outpatient (BNVA) | payer MEDICAID, SELFPAY | PROVIDERS: PCP Family Medicine; Visit Provider Family Medicine | DX: I10 Essential (primary) hypertension (principal); E03.9 Hypothyroidism, unspecified; R10.9 Unspecified abdominal pain; R30.0 Dysuria; R31.9 Hematuria, unspecified | CPT/HCPCS: 80053; 80061; 81000; 84439; 84443; 84481; 85025; 87077; 87086; 87184 ==

== ENCOUNTER → 2023-09-02 10:36 | Outpatient (BNVA) | payer OTHER, MEDICAID, SELFPAY | PROVIDERS: PCP Family Medicine; Visit Provider Psychiatry & Neurology Neurology | DX: G40.909 Epilepsy, unspecified, not intractable, without status epilepticus (principal); E03.9 Hypothyroidism, unspecified; R41.3 Other amnesia; Z87.898 Personal history of other specified conditions; I10 Essential (primary) hypertension | CPT/HCPCS: 99203 ==

== ENCOUNTER → 2023-09-08 08:33 | Outpatient (BNVA) | payer OTHER, MEDICAID, SELFPAY | PROVIDERS: PCP Family Medicine; Visit Provider Family Medicine | DX: K21.9 Gastro-esophageal reflux disease without esophagitis (principal); I10 Essential (primary) hypertension; K58.9 Irritable bowel syndrome, unspecified; E03.9 Hypothyroidism, unspecified; Z87.898 Personal history of other specified conditions; K59.04 Chronic idiopathic constipation; Z51.81 Encounter for therapeutic drug level monitoring | CPT/HCPCS: 80053; 84439; 84443; 84481; 85025 ==

== ENCOUNTER 2023-09-17 06:48 | Outpatient (CLI) | payer OTHER, MEDICAID, SELFPAY ==
--- NOTE | 2023-09-17 07:15 | USCV_ITS ---
Kim Wilks Age: 58 Gender: F : 1965 Exam Date: 09/17/2023 07:07 Ordering Phys: Jose Angela MD Technologist: Exam Location: [facility] [place] Indication: cardiomyopathy BP: 120 / 70 HR: 142 Rhythm: Sinus Technical Quality: Adequate MEASUREMENTS (Male / Female) Normal Values 2D ECHO LV Diastolic Diameter PLAX 4.7 cm 4.2 - 5.9 / 3.9 - 5.3 cm LV Systolic Diameter PLAX 4.2 cm IVS Diastolic Thickness 1.0 cm 0.6 - 1.0 / 0.6 - 0.9 cm IVS Systolic Thickness 1.3 cm LVPW Diastolic Thickness 1.1 cm 0.6 - 1.0 / 0.6 - 0.9 cm LVPW Systolic Thickness 1.2 cm LVOT Diameter 2.0 cm LV Ejection Fraction 2D Teich 22.9 % LV Ejection Fraction MOD 2C 32.9 % LV Ejection Fraction 2C AL 35.0 % LA Diameter 3.1 cm RA Systolic Volume 4C AL 21.8 ml RA Systolic Volume 4C MOD 20.6 ml LA Sys Volume AL 43.9 cm cubed LA Sys Volume Index AL 21.4 cm cubed/m squared Aorta at Sinotubular Diameter 2.2 cm IVC Diameter 1.3 cm M-MODE LA Ao Ratio MM 0.9 AV Cusp Separation MM 2.0 cm DOPPLER AV Peak Velocity 152.3 cm/s LVOT Peak Velocity 79.0 cm/s AV Area Cont Eq vti 2.0 cm squared AV Area Cont Eq pk 1.7 cm squared MV Peak Velocity 145.0 cm/s MV Area PHT 7.8 cm squared Mitral E to A Ratio 6.4 TR Peak Velocity 124.0 cm/s TR Peak Gradient 6.2 mmHg TV Peak E Velocity 95.0 cm/s Right Atrial Pressure 3.0 mmHg Pulmonary Artery Systolic Pressu 9.2 mmHg PV Peak Velocity 104.0 cm/s FINDINGS Left Ventricle Respiratory stable status. LV systolic function is severely reduced with EF of 20-25%. Severe global hypokinesis seen. Right Ventricle Normal in size and function Right Atrium Normal in size Left Atrium Normal in size Mitral Valve Mitral valve is thickened. Mild mitral regurgitation. Aortic Valve Structurally normal aortic valve. No significant stenosis Tricuspid Valve Insufficient TR jet to calculate RVSP. Pulmonic Valve Not well-visualized Pericardium Normal Aorta Normal in size IVC Appears to be normal CONCLUSIONS LV systolic function is severely reduced with EF of 20-25% Mild mitral regurgitation No comparison studies are available. Juan Stevens MD (Electronically Signed) Final Date: 20 Sep 2023 22:58 S
== END 2023-09-17 06:49 | disposition home or self-care (01) ==
LOC: RAD 06:48
PROVIDERS: PCP Family Medicine; Visit Provider Psychiatry & Neurology Neurology
DX: I50.82 Biventricular heart failure (principal); Z87.898 Personal history of other specified conditions; E03.9 Hypothyroidism, unspecified; K92.1 Melena
CPT/HCPCS: 93306

== ENCOUNTER 2023-10-07 07:52 | Outpatient (CLI) | payer OTHER, MEDICAID, SELFPAY ==
--- NOTE | 2023-10-07 08:30 | MR_ITS ---
WS: [id number] MRI BRAIN WITH AND WITHOUT CONTRAST HISTORY: Z87.898 - Personal history of other specified conditions COMPARISON: Noncontrast CT head 04/22/2022 TECHNIQUE: Multiplanar imaging performed through the brain with MultiHance 20 ml's IV. No acute infarcts are seen. Stallworth-white matter differentiation is well preserved. Diffuse moderate vol ume loss. Large area of encephalomalacia from a prior infarct or surgery involving the posterior fron toparietal region. There is encephalomalacia with surrounding gliosis. Basal ganglia calcifications. Calcifications are also noted in the cerebellum on the prior CT. Mild s mall vessel ischemic disease. Ventricles and extra-axial spaces are prominent on the basis of atrophy. Clivus and pituitary gland are normal. Mild atrophy of the vermis as seen on the prior study. No infarct. There is several extra-axial masses identified consistent with meningiomas. Extra axial diffusely enh ancing mass along the inferior LEFT frontal lobe involving the orbital roof is reidentified measuring 1.3 x 1.1 cm. Additional intensely enhancing extra-axial mass along the LEFT parietal dura measures 0.5 x 0.9 cm. Lobulated enhancing mass along the posterior supratentorial falx intensely enhancing me asures 2.2 x 1.2 cm. There is a smaller more inferior component along the midline falx measuring 0.6 x 0.7 cm. Additional extra-axial mass intensely enhancing measures 0.6 x 0.7 cm RIGHT occipital dura. All of these masses are most consistent with meningiomas. No additional areas of abnormal enhancemen t identified. Minimal hippocampal atrophy. Dural venous sinuses are normal. Small caliber LEFT intracranial carotid artery. There does appear to be flow in the LEFT intracranial carotid artery. Absent flow was noted on recent MRA. Paranasal sinuses: Well aerated with no significant disease. Mastoid air cells: Normal. Calvarium and scalp: Large prior LEFT craniotomy site. Craniotomy was better visualized on a prior CT . MR/MR head wo/w con [id number] IMPRESSION: 1. Moderate volume loss and atrophy with a prior area of encephalomalacia invo lving the posterior LEFT frontal parietal region as noted on a prior CT. This m ay be a postsurgical site. 2. There are numerous extra-axial masses most consistent with meningiomas. Pre viously described meningioma along the LEFT orbital roof is very slightly incre ased in size now measuring 1.3 x 1.1 cm. There are at least 5 meningiomas ident ified. 3. Minimal hippocampal atrophy. 4. There is a small amount of flow identified in the LEFT ICA on the postcontr ast evaluation. No flow was identified on a recent MR angiogram. There may be a small lumen remaining versus reversal of flow. Recommend follow-up CT angiogra m of the head and neck.
--- NOTE | 2023-10-07 09:15 | MR_ITS ---
WS: [id number] MRA CAROTID ARTERIES HISTORY: R41.3 - Other amnesia COMPARISON: None available. TECHNIQUE: MRA is performed with intravenous gadolinium. MIP and source images are reviewed. Technically very limited evaluation of the carotid arteries. Right: RIGHT common carotid artery is patent. There may be mild plaque. ECA is patent. Origin from th e innominate artery is limited. Left: Proximal LEFT cervical carotid artery is not well visualized. Proximal cervical carotid arterie s patent. At the skull base there is loss of the normal opacified carotid artery consistent with a co mplete occlusion. External carotid artery may also be occluded. Subclavian Arteries: Poorly visualized. Cannot exclude significant atherosclerosis disease or stenosi s. Vertebral Arteries: Dominant RIGHT vertebral artery. LEFT vertebral artery is very small caliber but patent. MR/MR angio neck w con* [id number] IMPRESSION: 1. Technically very limited and difficult evaluation of the carotid arteries. 2. LEFT ICA appears to be occluded at the skull base. This may be better evalu ated by CT angiogram. 3. Patent RIGHT cervical ICA with no occlusion. 4. Dominant RIGHT vertebral artery. Small caliber LEFT vertebral artery.
[2023-10-07] MEDS: gadobenate dimeglumine 20 mL vial IV (09:35)
--- NOTE | 2023-10-07 10:00 | MR_ITS ---
WS: [id number] MRA ANGIOGRAPHY [place] OF [place] HISTORY: R41.3 - Other amnesia COMPARISON: None available. TECHNIQUE: 3-D MR angiography is performed of the [place]. All images are reviewed including source images. Slightly dominant distal RIGHT vertebral artery. LEFT vertebral artery is patent. Normal basilar norris ry. No aneurysm. Posterior cerebral arteries are both identified and widely patent. Posterior communi cating arteries are both widely patent with the LEFT being larger than the RIGHT. Normal size RIGHT ICA through the skull base through the cavernous sinuses. No flow is identified wit hin the LEFT intracranial ICA. Findings are consistent with a complete occlusion. RIGHT middle cerebr al artery is patent. No aneurysm. Hypoplastic RIGHT A1 segment. Questionable flow is identified. LEFT MCA is being opacified by a large LEFT posterior communicating artery and also probably in part by t he LEFT A1 segment if there is flow in the RIGHT A1 segment. Anterior communicating artery and the A2 segments are normal. There is a paucity of vessels in the distal LEFT middle cerebral artery territo ry. Prior infarct noted along the LEFT posterior interhemispheric falx. Additional volume loss within the brain. These areas will be better identified on the MRI that is being performed on the same day. MR/MR angio head wo con [id number] IMPRESSION: 1. 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 2. LEFT MCA being fed by dominant LEFT posterior communicating artery and prob ably also by the intact anterior communicating artery. 3. Hypoplastic versus occluded RIGHT A1 segment. If the RIGHT A1 segment is no t completely occluded it may be providing some blood supply to the LEFT MCA. 4. Small caliber LEFT MCA with a paucity of vessels in the distal MCA territor y. 5. Prior infarct and volume loss noted within the brain. Brain will be better evaluated on an MRI performed the same day.
== END 2023-10-07 07:53 | disposition home or self-care (01) ==
LOC: RAD 07:52
PROVIDERS: PCP Family Medicine; Visit Provider Psychiatry & Neurology Neurology
DX: R41.3 Other amnesia (principal); Z87.898 Personal history of other specified conditions; K92.1 Melena; I65.22 Occlusion and stenosis of left carotid artery; R94.02 Abnormal brain scan
CPT/HCPCS: 70544; 70548; 70553; A9577

== ENCOUNTER → 2023-10-15 14:33 | Outpatient (BNVA) | payer OTHER, MEDICAID, SELFPAY | PROVIDERS: PCP Family Medicine; Visit Provider Internal Medicine Cardiovascular Disease | DX: R06.02 Shortness of breath (principal); R07.9 Chest pain, unspecified; I10 Essential (primary) hypertension; I42.9 Cardiomyopathy, unspecified; I44.7 Left bundle-branch block, unspecified; E78.5 Hyperlipidemia, unspecified; E03.9 Hypothyroidism, unspecified; Z87.891 Personal history of nicotine dependence | CPT/HCPCS: 36415; 80048; 83880; 93005 ==

== ENCOUNTER 2023-11-18 08:15 | Outpatient (CLI) | payer OTHER, MEDICAID, SELFPAY ==
[2023-11-18 08:32] VITALS: BMI 38.7
--- NOTE | 2023-11-18 08:38 | ECG_ITS ---
[facility] Test Date: 2023-11-18 Pat Name: Kim Wilks Department: Room: Gender: Female Palliative Care Coordinator: : 1965 Requested By: Mercedes Dc Order Number: [id number] Reading MD: Interpretive Statements Lung unchanged pre/post procedure; Intraprocedure shortess of breath; Symptoms resoled by discharge [email or web address]
--- NOTE | 2023-11-18 08:39 | NMCV_ITS ---
NM courtney perf SPECT r/s* [id number] Kim Wilks Age: 58 Gender: F : 1965 Exam Date: 11/18/2023 08:39 Ordering Phys: Mercedes Dc MD ([email or web address]) Technologist: ANTWON Perdomo Exam Location: [facility] Indications: Cardiomyopathy STRESS TEST Please see separate stress test report in [facility] for full findings IMAGE PROTOCOL Rest/Stress 1 Lexiscan Day Radiopharmaceutical Dose (mCi) Administration Site Administered by Rest: Tc-99m 10.4 IV ANTWON Perdomo Sestamibi Stress:Tc-99m 32.4 IV ANTWON Perdomo Sestamibi Rest: 18-Nov-2023 60 Discovery 630 Stress: 18-Nov-2023 30 Discovery 630 0.4mg Lexiscan. Supine position only as patient was unable to lay prone. SPECT RESULTS Technical Quality: Good Raw Data Analysis: Breast attenuation Image Corrections: No attenuation or motion correction applied Summed Stress Score: 13 Summed Rest Score: 9 Summed Difference Score: 4 PERFUSION FINDINGS Moderate to large area of minimal to moderately decreased tracer uptake involving the mid and apical inferior, mid inferolateral, mid inferoseptal, mid anteroseptal, apical septal, apical lateral and LV apex. Some reversibility was noted in the inferior, inferoseptal and apical lateral regions. FUNCTIONAL RESULTS (calculated via Gated SPECT) Stress Image LV EF (%): 32 Stress EDV (mL):198 TID: 1.07 Stress ESV (mL):134 FUNCTIONAL FINDINGS: Segmental wall motion analysis revealed diffuse hypokinesia of the left- ventricle,, excluding the basal segments IMPRESSIONS 1. Myocardial perfusion imaging revealing moderate to large area of minimal to moderate degree tracer uptake involving the inferior, inferoseptal, inferolateral, anteroseptal and apical regions with some reversibility, suggesting extensive myocardial scarring involving the distribution of all the 3 coronary arteries with small areas of ana-infarction ischemia. 2. Diminished LV ejection fraction of 32%. 3. Pulmonary abnormalities as mentioned above. 4. Moderately dilated LV cavity with an end-systolic volume of [address] Mercedes Dc MD [facility] (Electronically Signed) Final Date: 18 November 2023 22:05 S
[2023-11-18] MEDS: regadenoson 0.4 Mg/5 ml Syringe IVP (10:55)
[2023-11-18 11:11] VITALS: BP 126/88; PULSE 88
== END 2023-11-18 08:16 | disposition home or self-care (01) ==
LOC: CDL 08:16
PROVIDERS: PCP Family Medicine; Visit Provider Internal Medicine Cardiovascular Disease
DX: Z98.61 Coronary angioplasty status (principal); R94.39 Abnormal result of other cardiovascular function study; R06.02 Shortness of breath
CPT/HCPCS: 36415; 78452; 93017; 96374; A9500; J2785

== ENCOUNTER 2024-01-21 07:29 | Outpatient (CLI) | payer OTHER, MEDICAID, SELFPAY ==
[2024-01-21 08:10] LABS: Basophils % 0.4 %; Eosinophils # 0.3 10^3/uL (0.0-0.8); Eosinophils % 4.2 %; Hematocrit 41.8 % (36-47); Lymphocytes # 1.8 10^3/uL (0.8-4.8); Lymphocytes % 23.7 %; Mean Corpuscular HGB Conc 30.9 g/dL (30-55); Mean Corpuscular Hemoglobin 27.9 pg (27-33); Mean Corpuscular Volume 90.3 fl (85-98); Mean Platelet Volume 10.2 fL (7.4-10.4); Monocytes # 0.4 10^3/uL (0.2-0.9); Monocytes % 5.6 %; Neutrophils # 4.95 10^3/uL (1.8-7.7); Neutrophils % 65.7 %; Nucleated Red Blood Cells % 0 %; Platelet Count 280 10^3/cmm (157-399); Red Blood Count 4.63 10^6/uL (3.85-5.65); Red Cell Distribution Width 14.1 % (12.1-15.1); White Blood Count 7.54 10^3/uL (3.29-11.43)
[2024-01-21 08:18] LABS: INR 0.97 (0.8-1.2)
[2024-01-21 08:38] LABS: Anion Gap 12.2 (5-19); Blood Urea Nitrogen 15 mg/dL (6-20); Calcium 9.5 mg/dL (8.5-10.5); Carbon Dioxide 31 mmol/L (22-29); Chloride 105 mmol/L (98-107); Glomerular Filtration Rate 73.9 mL/min (90-130); Glucose 118 mg/dL (65-115); NT Pro B Type Natriuretic Pept 3087 pg/mL (0-125); Osmolality Calculated 300 mOsm/kg (285-295); Potassium 4.2 mmol/L (3.5-5.1); Sodium 144 mmol/L (136-145)
== END 2024-01-21 07:30 | disposition home or self-care (01) ==
LOC: LAB 07:31
PROVIDERS: PCP Family Medicine; Visit Provider Internal Medicine Cardiovascular Disease
DX: Z79.01 Long term (current) use of anticoagulants (principal); R06.02 Shortness of breath; R94.39 Abnormal result of other cardiovascular function study; I48.91 Unspecified atrial fibrillation
CPT/HCPCS: 36415; 80048; 83880; 85025; 85610; 86850; 86900

== ENCOUNTER 2024-01-28 05:55 | Outpatient (CLI) | payer OTHER, MEDICAID, SELFPAY ==
[2024-01-28] VITALS (29 sets, daily range): BP systolic 94–170; BP diastolic 51–91; PULSE 83–101; RESP 13–24; TEMP 36.3–36.7; O2SAT 90–96; BMI 38.3
--- NOTE | 2024-01-28 06:00 | XACV_ITS ---
Exam Room: 2 Ht: 155 cm Wt: 92 kg BSA: 2.04 m2 Gender: Female : 1965 Any Known Allergies: No known allergies Exam Priority: Routine Procedure(s): Procedure Description: Diagnostic procedure Procedure Description: Left Heart Catheterization Procedure Description: Left ventriculography Procedure Description: Coronary Angiography Dao JEAN; Diagnostic Cath Status: Elective Diagnostic Findings * The left main is a medium caliber vessel with no significant stenotic lesions. * The left anterior descending artery is a medium caliber vessel which appears to wraparound the LV apex minimally. Minimal intimal irregularities are noted in the proximal segment. No significant stenotic lesions. * The left circumflex artery is a medium caliber nondominant vessel with no significant stenotic lesions. * The right coronary artery is a medium to large caliber dominant vessel with no significant stenotic lesions. Conclusions 1. 58-year-old white female with history of cardiomyopathy, high blood pressure, dyslipidemia, presented with complaints of shortness of breath. Her echocardiogram revealed an LV ejection fraction of 20 to 25%. She had a Myocardial perfusion imaging which revealed areas of fixed defects in the distribution of all 3 coronary arteries with the very small areas of reversible defects, suggesting myocardial scarring with possible ana-infarction ischemia. In view of the severe LV dysfunction and the abnormal Myocardial perfusion imaging, for further evaluate the coronary status, a cardiac catheterization was recommended. Patient underwent left heart catheterization with left and right coronary angiogram and LV angiogram today. The findings are as follows.. 2. 1. No severe obstructive coronary artery disease in the left main, LAD, circumflex and right coronary arteries. Minimal intimal irregularities were noted in the left anterior descending artery.2. LV gram revealed diffuse hypokinesis of the left left ventricle with an ejection fraction of around 30%. No filling defects were noted. LVEDP was 23 mmHg. Diagnostic RX Recommendation: medical therapy and/or counseling LV EDP: 23 mmHg Ventriculography Ejection Fraction: 30.0 % Left Ventriculography Findings: * The LV gram was performed in the HANLEY projection. The LV cavity appears to be mildly dilated. There was diffuse hypokinesia of the left ventricular ejection fraction of 30%. There was no significant mitral valve prolapse or mitral regurgitation. The LVEDP was 23 mmHg.. Pressures Phase:Rest AO : 123 / 51 ( 81 ) @ 8:44:00 AM 100 / 66 ( 83 ) @ 8:48:00 AM 84 / 59 ( 70 ) @ 8:53:00 AM 116 / 40 ( 70 ) @ 8:59:00 AM 115 / 47 ( 71 ) @ 8:59:00 AM LV : 127 / 0 / 23 @ 8:57:00 AM 127 / 0 / 16 @ 8:58:00 AM Clinical Evaluation EBL: 5mL-10mL Procedural Details Pre-Procedure Time Out. Identified patient by full name and date of as verbalized by the patient/guarantor. Does the consent match the physician's order: Yes. Accurate & Complete Informed Consent: Yes. Inpatient/Outpatient History & Physical on Chart: Yes. If H&P is completed, is and addenduem needed: No; If yes, is the addendum complete: N/A. Visualize and Verify Site with Patient/Guarantor: N/A. Relevant Radiology Images available: Yes. Pre-op teaching completed and patient verbalized understanding. The risks, benefits, and alternatives of sedation and/or procedure were discussed by physician. The patient agrees to continue. Procedure started. Current Diagnosis : Chest Pain. [facility] Clinical Fraility Score: 3: Managing Well. Site Controller Indications: Other. Chest Pain Symptom Assessment: Typical Angina Symptoms. Correct patient, site and procedure confirmed by cath team. Current diagnosis: Chest Pain. PERRLA. Strong, equal hand fire hazard inspector bilaterally. Lungs clear x 5 lobes. IV Site on Arrival: 18 gauge in the left anticubital. IV Fluids: 0.9% NaCl at KVO. 0 mL infused prior to senior label specialist. Pre Procedural Pulses: bilateral dorsalis pedis was Doppled. Pre Procedural Pulses: bilateral posterior tibial was Doppled. Pre Procedural Pulses: bilateral radial was 3+. Oxygen started at 2liters/min via nasal canula. right groin was prepped with chloroprep then draped in the usual sterile fashion. right radial was prepped with chloroprep then draped in the usual sterile fashion. Baseline sample Acquired. HR: 97 BPM. Physician arrived. Physician scrubbed in. Immediate Pre-Procedure Time Out. Correct Patient: Yes; Correct Procedure: Yes; Correct Site: Yes; Correct Patient Position: Yes; Correct Supplies: Yes; Dried Flammable Prep: Yes; Blood Products Available: N/A;. Lidocaine 1% infiltrated to the right radial. Arterial access obtained. A 5 kenyan Oscar catheter in over wire. Multiple views taken of left coronary artery. Catheter redirected to the RCA. Catheter removed over the standard wire. A 5 kenyan JR4 catheter in over wire. Multiple views taken of right coronary artery. Catheter removed over the standard wire. A 5 kenyan Angled Pig catheter in over wire. EDP Sample taken: LV 127/0,23; HR: 90 BPM; SpO2: 96%. LV gram performed in HANLEY @ 10 mL/second for a total of 30 mL. EDP Sample taken: LV 127/0,16; HR: 86 BPM; SpO2: 90%. Pullback taken: LV Off; AO Off; Mean: , Peak to Peak: , SEP: ; HR: 87 BPM; SpO2: 90%. Catheter removed over the exchange wire. Physician scrubbed out. Physician review of cine films. Vital chart was stopped. A TR Band was successful obtaining hemostatsis at the Right Radial artery insertion site. Post Procedure: Pulses reassessed and unchanged. PERRLA. Strong, equal hand fire hazard inspector bilaterally. No VTE prophylaxis required. Medication's Wasted: Lidocaine 1% = 18 mL. Medication's Wasted: Nitro = 49.9 mcg. Medication's Wasted: Heparin = 1000 units. Medication's Wasted: Other = Fentanyl 50mcg Versed 1 mg. Total IV fluids: 300 mL. Complications: None. Estimated blood loss: 5mL-10mL. Responsiveness - Normal response to verbal stimuli; alert and oriented, PERRLA. Airway - Unaffected, no intervention required; spontaneous ventilation. Circulation: W/N/L, pulses unchanged. Nausea/Vomiting: No. Procedure completed. Patient transferred by stretcher to CPRU. Access Site Site: Right Radial artery Sheath Size: 6 Fr Hemostasis Method: TR Band Hemostasis Success: Successful Procedure Medications Start: 7:30 AM Stop: 7:30 AM Medication: Versed Amount: 1 mg Route: I.V. Start: 7:30 AM Stop: 7:30 AM Medication: Fentanyl Amount: 50 mcg Route: I.V. Start: 7:40 AM Stop: 7:40 AM Medication: 0.9% Saline Amount: 250 ml Route: I.V. bolus Start: 7:42 AM Stop: 7:42 AM Medication: Verapamil Amount: 5 mg Route: I.A. Start: 7:45 AM Stop: 7:45 AM Medication: Heparin Amount: 5000 units Route: I.V. Start: 7:49 AM Stop: 7:49 AM Medication: Nitrogylcerin Amount: 100 mcg Route: I.A. I, the attending physician, have reviewed and verified all procedure medications. Yes, all medications given per verbal order History/Risk Factors Hypertension: Yes Dyslipidemia: Yes Peripheral Arterial Disease (PAD): No Myocardial Infarction (VT): No Obesity: Yes Renal Disease: No Tobacco Use: Former Prior Interventions PCI: No CABG: No Valve Surgery: No Report Signatures Finalized by Dr Mercedes Dc MD [facility] on 01/28/2024 09:07 AM
[2024-01-28] MEDS: diphenhydrAMINE 50 mg Capsule PO (06:35)
--- NOTE | 2024-01-28 07:14 | W.PM.OPSUD ---
Surgery/Procedure H&P Update DATE OF PROCEDURE: January 28, 2024 DATE H&P PERFORMED: 01/14/24 H&P UPDATE INFORMATION: I have reviewed H&P completed within last 30 days, I have examined patient prior to procedure and No changes to prior documentation PREOP DIAGNOSIS: Cardiomyopathy/possible ASHD PRIMARY INDICATION FOR PROCEDURE: Patient with severe LV systolic dysfunction, abnormal Myocardial perfusion imaging PLANNED PROCEDURE: Operation Date: 01/28/24 07:00 Proposed Procedures p Cardiac Catheterization - RLHC w/wo LV & anjali(Bilateral) - Mercedes Dc MD PATIENT REASSESSED PRIOR TO SEDATION, WITH NO CHANGE NOTED: Yes PHYSICAL EXAM: alert, oriented x 3, clear to auscultation bilaterally and regular rate & rhythm AIRWAY EVAL/ANESTHESIA PLAN: normal airway, see other exam findings, ASA III, Monitored Anesthesia, Local Anesthesia, Risks, benefits & alternatives of sedation and/or procedure discussed and Patient agrees to continue as planned
--- NOTE | 2024-01-28 10:02 | PC.NURSE ---
Patient received from lab nurse at 0828. Patient is s/p left heart cath with right radial access. TR Band in place. No s/s of bleeding or hematoma formation observed. Instructed patient on site care and restrictions. Patient verbalized complete understanding. Will continue to monitor.
[2024-01-28] MEDS: levothyroxine 150 mcg Tablet PO (10:08)
[2024-01-28] MEDS: FUROsemide 40 mg Tablet PO (10:08)
[2024-01-28] MEDS: pantoprazole DR 40 mg Tablet PO (10:08)
[2024-01-28] MEDS: aspirin 81 mg EC Tablet PO (10:08)
[2024-01-28] MEDS: potassium chloride ER 20 mEq Tablet PO (10:08)
[2024-01-28] MEDS: levETIRAcetam 500 mg Tablet PO ×2 (10:08→16:59)
[2024-01-28] MEDS: sacubitril/valsartan 24-26 mg Tablet 1 EACH PO ×2 (10:08→16:59)
[2024-01-28] MEDS: metoprolol succinate ER (24 HR) 50 mg Tablet PO (10:08)
[2024-01-28] MEDS: spironolactone 25 mg Tablet PO (10:08)
--- NOTE | 2024-01-28 12:59 | PC.NURSE ---
Initiated TR band removal at 0925 removing 2ml of air every 15 to 20min until all air removed. Band off at this time. No s/s of bleeding or hematoma formation observed. covered site with 2x2 and coban. Patient denies pain to site. Instructed patient on site care and restrictions. Patient verbalized understanding. Patient has been up to ambulate without pain or difficulty. Will continue to monitor.
--- NOTE | 2024-01-28 17:34 | PC.NURSE ---
patient discharged to home. No s/s of bleeding or hematoma formation observed. Instructed patient on site care and new medications. Rx transmitted to [facility]. Patient take by wheelchair to private vehicle. Significant other at side.
== END 2024-01-28 17:35 | disposition home or self-care (01) ==
LOC: CCL 05:55 → CSU 08:08
PROVIDERS: PCP Family Medicine; Visit Provider Internal Medicine Cardiovascular Disease
DX: R06.02 Shortness of breath (principal); I42.9 Cardiomyopathy, unspecified; I10 Essential (primary) hypertension; E78.5 Hyperlipidemia, unspecified; E66.9 Obesity, unspecified; Z68.38 Body mass index [BMI] 38.0-38.9, adult; Z79.82 Long term (current) use of aspirin; Z79.01 Long term (current) use of anticoagulants
CPT/HCPCS: 93458; 96374; 99152; 99153; C1769; C1887; C1894; J1644; J2250; J2371; J3010; J3490; J7030; J7050; Q0163; Q9967

== ENCOUNTER → 2024-02-17 10:00 | Outpatient (BNVA) | payer OTHER, MEDICAID, SELFPAY | PROVIDERS: PCP Family Medicine; Visit Provider Nurse Practitioner Family | DX: R10.9 Unspecified abdominal pain (principal); R34 Anuria and oliguria | CPT/HCPCS: 81000 ==

== ENCOUNTER 2024-05-25 07:41 | Outpatient (CLI) | payer OTHER, MEDICAID, SELFPAY ==
--- NOTE | 2024-05-25 07:45 | USCV_ITS ---
Kim Wilks Age: 58 Gender: F : 1965 Exam Date: 05/25/2024 08:01 Ordering Phys: Lucrecia Dumont Technologist: [place] [facility] [place]: ef intercardiac device BP: 129 / 73 HR: Rhythm: Sinus Technical Quality: Adequate MEASUREMENTS (Male / Female) Normal Values 2D ECHO LV Diastolic Diameter PLAX 4.9 cm 4.2 - 5.9 / 3.9 - 5.3 cm IVS Diastolic Thickness 1.3 cm 0.6 - 1.0 / 0.6 - 0.9 cm IVS Systolic Thickness 1.6 cm LVPW Diastolic Thickness 1.3 cm 0.6 - 1.0 / 0.6 - 0.9 cm LVPW Systolic Thickness 1.4 cm LVOT Diameter 1.6 cm LV Ejection Fraction 2D Teich 37.0 % LV Ejection Fraction MOD 4C 38.3 % LV Ejection Fraction MOD 2C 29.8 % LV Ejection Fraction 2C AL 31.0 % LA Diameter 3.2 cm RA Systolic Volume 4C AL 32.9 ml RA Systolic Volume 4C MOD 31.5 ml Aorta at Sinotubular Diameter 2.5 cm M-MODE LA Ao Ratio MM 1.1 AV Cusp Separation MM 1.5 cm FINDINGS Left Ventricle Right Ventricle Right Atrium Left Atrium Mitral Valve Aortic Valve Tricuspid Valve Pulmonic Valve Pericardium Aorta IVC CONCLUSIONS Limited echocardiogram performed to assess LV systolic function LV systolic function is severely reduced with EF of 25-30%. Severe global hypokinesis. Juan Stevens MD (Electronically Signed) Final Date: 30 May 2024 13:14 S
== END 2024-05-25 07:42 | disposition home or self-care (01) ==
LOC: RAD 07:42
PROVIDERS: PCP Family Medicine; Visit Provider Nurse Practitioner Family
DX: I50.20 Unspecified systolic (congestive) heart failure (principal); R93.1 Abnormal findings on diagnostic imaging of heart and coronary circulation
CPT/HCPCS: 93308

== ENCOUNTER → 2024-09-01 08:35 | Outpatient (BNVA) | payer OTHER, MEDICAID, SELFPAY | PROVIDERS: PCP Family Medicine; Visit Provider Family Medicine | DX: I10 Essential (primary) hypertension (principal); Z87.898 Personal history of other specified conditions; M25.512 Pain in left shoulder; E03.9 Hypothyroidism, unspecified; K58.9 Irritable bowel syndrome, unspecified; K21.9 Gastro-esophageal reflux disease without esophagitis; Z13.1 Encounter for screening for diabetes mellitus; R73.9 Hyperglycemia, unspecified; I42.9 Cardiomyopathy, unspecified; K59.04 Chronic idiopathic constipation; K92.1 Melena; M17.0 Bilateral primary osteoarthritis of knee | CPT/HCPCS: 80053; 80061; 83036; 84443; 85025 ==

== ENCOUNTER → 2025-01-12 12:08 | Outpatient (BNVA) | payer OTHER, MEDICAID, SELFPAY | PROVIDERS: PCP Family Medicine; Visit Provider Internal Medicine Cardiovascular Disease | DX: R06.02 Shortness of breath (principal) | CPT/HCPCS: 36415; 80048; 83880 ==

== ENCOUNTER 2025-02-08 06:47 | Outpatient (CLI) | payer OTHER, MEDICAID, SELFPAY ==
--- NOTE | 2025-02-08 07:00 | USCV_ITS ---
Kim Wilks Age: 59 Gender: F : 1965 Exam Date: 02/08/2025 07:11 Ordering Phys: Mercedes Dc MD ([email or web address]) Technologist: Exam Location: [facility] [place] Indication: chf BP: 135 / 74 HR: Rhythm: Sinus Technical Quality: Adequate MEASUREMENTS (Male / Female) Normal Values 2D ECHO LV Diastolic Diameter PLAX 4.2 cm 4.2 - 5.9 / 3.9 - 5.3 cm IVS Diastolic Thickness 1.1 cm 0.6 - 1.0 / 0.6 - 0.9 cm IVS Systolic Thickness 1.2 cm LVPW Diastolic Thickness 1.2 cm 0.6 - 1.0 / 0.6 - 0.9 cm LVPW Systolic Thickness 1.4 cm LVOT Diameter 2.0 cm LV Ejection Fraction 2D Teich 36.0 % LV Ejection Fraction MOD 4C 30.6 % LV Ejection Fraction MOD 2C 34.0 % LV Ejection Fraction 2C AL 34.4 % LA Diameter 3.4 cm RA Systolic Volume 4C AL 17.8 ml RA Systolic Volume 4C MOD 15.9 ml Aorta at Sinotubular Diameter 2.0 cm IVC Diameter 1.2 cm FINDINGS Left Ventricle Dyskinetic mid and apical septum and anteroseptal segments. Severe diffuse hypokinesia of the inferolateral wall segment. Diffuse hypokinesis of the LV apex. LV ejection fraction around 30%. Right Ventricle Normal right ventricular size and systolic function. Right Atrium Normal right atrial size. Left Atrium Normal left atrial size. IA Septum No gross abnormalities noted Mitral Valve No gross abnormalities noted Aortic Valve Thickened aortic valve. Tricuspid Valve No gross abnormalities noted Pulmonic Valve Pulmonic valve not well visualized. Pericardium No pericardial effusion. Aorta Normal aortic annulus size. IVC Normal inferior vena cava. CONCLUSIONS Multiple wall motion normalities with a diminished ejection fraction of 30%. Dilated LV cavity. No significant morphologic abnormalities of the valves. There is no pericardial effusion. There are no intracardiac masses. Compared to the study from 05/25/2024, there may not be a significant change Dr Mercedes Dc MD [facility] (Electronically Signed) Final Date: 16 February 2025 09:53 S
== END 2025-02-08 06:48 | disposition home or self-care (01) ==
LOC: RAD 06:49
PROVIDERS: PCP Family Medicine; Visit Provider Internal Medicine Cardiovascular Disease
DX: I42.9 Cardiomyopathy, unspecified (principal); R93.1 Abnormal findings on diagnostic imaging of heart and coronary circulation; I51.89 Other ill-defined heart diseases; I35.8 Other nonrheumatic aortic valve disorders; I51.7 Cardiomegaly
CPT/HCPCS: 93308

== ENCOUNTER → 2025-04-12 08:50 | Outpatient (BNVA) | payer OTHER, MEDICAID, SELFPAY | PROVIDERS: PCP Family Medicine; Visit Provider Family Medicine | DX: E03.9 Hypothyroidism, unspecified (principal); I10 Essential (primary) hypertension; R73.03 Prediabetes; R56.9 Unspecified convulsions; Z51.81 Encounter for therapeutic drug level monitoring; I50.20 Unspecified systolic (congestive) heart failure; I65.22 Occlusion and stenosis of left carotid artery | CPT/HCPCS: 80048; 80177; 83036; 83880; 84443 ==